=== PATIENT | male | born 1960 | race Caucasian/White ===

== ENCOUNTER 2023-10-09 11:10 | Outpatient (AMB) | payer OTHER, SELFPAY ==
--- NOTE | 2023-10-09 11:15 | A.OFFPC_ITS ---
Vital Signs 10/09/23 11:20 Height 5 ft 8.5 in Weight 146 lb 6 oz BMI 21.9 BP 140/64 H Blood Pressure Location Lt brachial Position Sitting Pulse 97 Pulse Source Pulse Oximeter Pulse Oximetry (%) 99 Oxygen Delivery Method Room Air Intake Visit Reasons: [facility] from [facility] Intake Note: Patient reports he would like to have labs- cholesterol. Patient had 2 major operations for his back due to pain in right leg. Patient reports right leg pain is still prominent. 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 Otolaryngology Surgeon Required: No Accompanied by: Spouse Allergies No Known Allergies Allergy (Verified 10/09/23 11:34) Tobacco use date assessed: 10/09/23 Dental Screening Dental Screen Date: 10/09/23 Did you have a dental visit in the last 12 months?: No Did you have a dental problem in the last 6 months where you did not have access to dental care?: No Was dental information given to patient?: Patient has dentist HPI HPI Comments History of Present Illness Details The patient is a 62 year old male with a past medical history of hypertension, hyperlipidemia, headaches presenting for follow up History of L3/L4 surgery 2022. Continues gabapentin. Presented with thigh pain and numbness. These symptoms did not resolve with surgery. Developed cervical myelopathy following surgery. Completed long course of PT. This slowly improved. Continues to be most bothered by daily chronic deep right upper leg pain. Has lost weight-unintentional CV: On pravastatin, verapamil (BOURGEOIS prophylaxis). Denies chest pain, dizziness, vision changes. GERD-stable on pepcid 20mg daily Colonoscopy 2012 ROS see HPI PHYSICAL EXAM: GENERAL: Alert and oriented x 3. NAD EYES: EOMI. Anicteric. HENT: Moist mucous membranes. No scleral icterus. No cervical lymphadenopathy. LUNGS: Clear to auscultation bilaterally. CARDIOVASCULAR: Regular rate and rhythm. No murmur. No JVD. ABDOMEN: Soft, non-tender +bs EXTREMITIES: No edema. Non-tender. MSK: Antalgic gait. Increased pain with squatting & rising SKIN: No rashes or lesions. Warm. NEUROLOGIC: No focal neurological deficits. CN II-XII grossly intact PSYCHIATRIC: Cooperative. Appropriate mood and affect [facility] Medical History Chronic GERD Cluster headache Pinched nerve High cholesterol Nerve palsy Hypertension Surgical History History of colonoscopy History of neck surgery Previous back surgery Family History Mother Cancer Father Heart attack Social History Household Members: Spouse Housing: House 75 years or older and lives alone: No Alcohol intake: current Alcohol intake frequency: a few times a month Alcohol type: beer Patient Tobacco Use Status: Former Tobacco user e-Cigarette/Vaping Use: Never Used Substance Use Type: Marijuana service: No Current occupational status: employed Cognitive needs: No Hearing needs: No Vision needs: No Questionnaire PHQ-9 Over the last 2 weeks, how often have you been bothered by any of the following problems? 1. Little interest or pleasure in doing things: not at all 2. Feeling down, depressed, or hopeless: not at all 3. Trouble falling or staying asleep, or sleeping too much: nearly every day 4. Feeling tired or having little energy: several days 5. Poor appetite or overeating: several days 6. Feeling bad about yourself - or that you are a failure or have let yourself or your family down: not at all 7. Trouble concentrating on things, such as reading the newspaper or watching television: not at all 8. Moving or speaking so slowly that other people could have noticed. Or the opposite - being so fidgety or restless that you have been moving around a lot more than usual: not at all 9. Thoughts that you would be better off or of hurting yourself in some way: not at all Total score: 5 Depression Screening Interpretation: Positive Depression Screening Done: Yes 32468 - PHQ-9 Billing: Yes Source: Developed by Drs. Chris Valentino, Velia León, Aaron Echols and colleagues, with an educational carrie from [employer]. Thrive Questionnaire Date Thrive assessed: 10/09/23 I am a: Patient What is your living situation today?: I have a steady place to live Within the past 12 months, did the food you bought not last and you didn't have the money to get more?: Never true Within the past 12 months, did you worry whether your food would run out before you got money to buy more?: Never true Do you have trouble paying for medicines?: No Do you have trouble getting transportation to medical appointments?: No Do you have trouble paying your heating and electricity bill?: No Do you have trouble taking care of your child, family member or friend?: No Do you have trouble with day-to-day activities such as bathing, preparing meals, shopping, managing finances, etc.?: No Are you currently unemployed and looking for a job?: No Are you interested in more education?: No Please select the resources that you would like help with: None Currently or been in a relationship where the following occur: No concerns reported THRIVE Score: 0 AUDIT C Alcohol Use Questionnaire (AUDIT-C) 1. How often do you have a drink containing alcohol?: 2-3 times a week 2. How many drinks containing alcohol do you have on a typical day when you are drinking?: 1 or 2 3. How often do you have six or more drinks on one occasion?: Never Total Score: 3 TINA-7 AMB Questionnaire TINA-7 Date TINA - 7 assessed: 10/09/23 Feeling nervous, anxious, or on edge: 0 = Not at all Not being able to stop or control worryin = Not at all Worrying too much about different things: 0 = Not at all Trouble relaxin = Not at all Being so restless that it is hard to sit still: 0 = Not at all Becoming easily annoyed or irritable: 0 = Not at all Feeling afraid as if something awful might happen: 0 = Not at all Total TINA-7 score (0-4 normal; 5-9 mild; 10-14 moderate; 15-21 severe): 0 Source: Developed by Drs. Chris Valentino, Velia León, Aaron Echols and colleagues, with an educational carrie from [employer]. TINA-7 Assessment Billing TINA-7 Assessment Tool: TINA-7 Assessment 51770 Physical exam (Primary Care) Vital Signs: Last Vital Signs Pulse 97 10/09/23 11:20 BP 140/64 H 10/09/23 11:20 Pulse Ox 99 10/09/23 11:20 Oxygen Delivery Method Room Air 10/09/23 11:20 BMI result Body Mass Index 21.9 Tobacco/Smoking Status: Tobacco use Status Tobacco use date assessed 10/09/23 10/09/23 11:39 Patient Tobacco Use Status Former Tobacco user 10/09/23 12:09 e-Cigarette/Vaping Use Never Used 10/09/23 12:09 PHQ-9: PHQ-9 Score PHQ-9: Total score 5 10/15/23 11:45 Depression Screening Interpretation: Positive Thrive Assessment: Date of Thrive Assessment Date Thrive assessed 10/09/23 10/09/23 12:01 Currently or been in a relationship where the following occur: No concerns reported Assessment and Plan Assessment & Plan (1) Right thigh pain: Code(s): M79.651 - Pain in right thigh Plan: MRI leg ordered. No improvement with these symptoms following back surgery Baclofen sent (2) Weakness of right lower extremity: Code(s): R29.898 - Other symptoms and signs involving the musculoskeletal system (3) Screening, deficiency anemia, iron: Code(s): Z13.0 - Encounter for screening for diseases of the blood and blood-forming organs and certain disorders involving the immune mechanism (4) Hyperlipidemia: Code(s): E78.5 - Hyperlipidemia, unspecified Qualifiers: Hyperlipidemia type: mixed hyperlipidemia Qualified Code(s): E78.2 - Mixed hyperlipidemia Plan: labs ordered. Plan Due for colonoscopy which is ordered Orders: Orders XR femur RT 2V 10/09/23 M79.651 - Pain in right thigh, R29.898 - Other symptoms and signs involving the musculoskeletal system MR femur RT wo con 10/09/23 M79.651 - Pain in right thigh, R29.898 - Other symptoms and signs involving the musculoskeletal system Lipid Panel 10/09/23 E78.5 - Hyperlipidemia, unspecified, M79.651 - Pain in right thigh, R29.898 - Other symptoms and signs involving the musculoskeletal system, Z13.0 - Encounter for screening for diseases of the blood and blood- forming organs and certain disorders involving the immune mechanism Complete Blood Count Auto Diff 10/09/23 E78.5 - Hyperlipidemia, unspecified, M79.651 - Pain in right thigh, R29.898 - Other symptoms and signs involving the musculoskeletal system, Z13.0 - Encounter for screening for diseases of the blood and blood-forming organs and certain disorders involving the immune mechanism Comprehensive Met. Panel 10/09/23 E78.5 - Hyperlipidemia, unspecified, M79.651 - Pain in right thigh, R29.898 - Other symptoms and signs involving the musculoskeletal system, Z13.0 - Encounter for screening for diseases of the blood and blood-forming organs and certain disorders involving the immune mechanism Referrals Open Access Screening Colonoscopy Referral Z12.11 - Encounter for screening for malignant neoplasm of colon, Z12.12 - Encounter for screening for malignant neoplasm of rectum Medications: New baclofen 10 mg PO BEDTIME 90 tabs 3RF Coding Level of Care Code Est Pt Level 5 (00819) Diagnoses Right thigh pain M79.651 Weakness of right lower extremity R29.898 Screening, deficiency anemia, iron Z13.0 Mixed hyperlipidemia E78.2 Hyperlipidemia type: mixed hyperlipidemia Additional Codes TINA-7 Assessment Billing - TINA-7 Assessment Tool: TINA-7 Assessment 90888 ([id number])
[2023-10-09 11:20] VITALS: BP 140/64; PULSE 97; O2SAT 99; BMI 21.9
== END 2023-10-09 12:45 | disposition home or self-care (01) ==
PROVIDERS: PCP Internal Medicine; Visit Provider Internal Medicine
DX: M79.651 Pain in right thigh (principal); R29.898 Other symptoms and signs involving the musculoskeletal system; Z13.0 Encounter for screening for diseases of the blood and blood-forming organs and certain disorders involving the immune mechanism; E78.2 Mixed hyperlipidemia
CPT/HCPCS: 99214

== ENCOUNTER 2023-10-09 12:26 | Outpatient (REF) | payer OTHER, SELFPAY ==
[2023-10-09 14:00] LABS: MANUAL DIFF FLAG NO
[2023-10-09 14:03] LABS: Basophils Absolute Auto 0.1 X10*3/uL (0.0-0.2); Basophils Percent Auto 0.9 % (0-2); Eosinophils Absolute Auto 0.1 X10*3/uL (0.0-0.4); Hematocrit 43.8 % (42.0-52.0); Hemoglobin 14.9 g/dl (14.0-18.0); Imm Gran Abs Auto 0.02 X10*3/uL (0.00-0.03); Imm Gran Pct Auto 0.3 % (0.0-0.4); Lymphocytes Absolute Auto 2.3 X10*3/uL (1.2-4.9); Lymphocytes Percent Auto 29.2 % (20-40); Mean Corpuscular Hemoglobin 33.3 pg (27.0-33.0); Mean Corpuscular Volume 97.8 fL (80.0-98.0); Mean Platelet Volume 9.6 fL (9.4-12.4); Monocytes Absolute Auto 0.7 X10*3/uL (0.1-1.2); Neutrophils Absolute Auto 4.7 x10*3/uL (2.0-8.3); Neutrophils Percent Auto 59.6 % (45-73); Platelet Count 206 X10*3/uL (160-400); Red Blood Count 4.48 X10*6/uL (4.60-5.80); Red Cell Distribution Width 12.5 % (11.0-16.0); White Blood Count 7.9 X10*3/uL (4.8-10.8)
[2023-10-09 14:20] LABS: Alanine Aminotransferase 87 U/L (0-40); Albumin Level 4.5 g/dL (3.5-5.0); Alkaline Phosphatase 74 U/L (39-117); Anion Gap 17 (12-20); Aspartate Amino Transferase 65 U/L (5-37); Bilirubin Total 0.5 mg/dL (0.0-1.0); Blood Urea Nitrogen 14 mg/dL (9-16); Carbon Dioxide 24 mmol/L (22-29); Chloride 100 mmol/L (96-108); Cholesterol 233 mg/dL (<200); Estimated Glomerular Filt Rate > 60; Glucose Random 89 mg/dL (60-115); HDL Cholesterol 72 mg/dL (>40); Potassium 4.1 mmol/L (3.3-5.1); Sodium 137 mmol/L (135-145); Total Protein 7.8 g/dL (6.5-8.0); Triglycerides 425 mg/dL (<150)
== END 2023-10-09 12:27 | disposition home or self-care (01) ==
LOC: HO.WFDLDS 12:26
PROVIDERS: Visit Provider Internal Medicine
DX: R29.898 Other symptoms and signs involving the musculoskeletal system (principal); M79.651 Pain in right thigh; Z13.0 Encounter for screening for diseases of the blood and blood-forming organs and certain disorders involving the immune mechanism; E78.5 Hyperlipidemia, unspecified
CPT/HCPCS: 36415; 80053; 80061; 85025

== ENCOUNTER 2023-11-11 15:57 | Outpatient (REF) | payer OTHER, SELFPAY ==
--- NOTE | ~2023-11-11 | MR_ITS ---
EXAMINATION: MRI OF THE RIGHT FEMUR WITHOUT CONTRAST INDICATION: M79.651 - Pain in right thigh. COMPARISON: None TECHNIQUE: Multiplanar MR imaging was obtained through the right femur from the hip through the distal femoral metaphysis without contrast material on a 1.5 Araseli magnet. FINDINGS: Chronic avascular necrosis is evident of the femoral heads bilaterally. At the right femoral head, there is collapse of the articular cortex anterosuperiorly over an area measuring 4 x 3.8 cm with a depth of depression of approximately 8 mm as well as intense underlying subarticular marrow edema signal. Minimal cystic change is also present within the periphery of the zone of infarct. There is an associated large right hip joint effusion with mild synovitis. No appreciable loose bodies. There is likely [id number] osteoarthritis in the right hip, though assessment of the cartilage is somewhat limited on these large [id number] images. Intense edema signal extends from the femoral head through the femoral neck. Chronic avascular necrosis is present at the left femoral head without appreciable articular cortical collapse. No significant marrow edema signal in the left proximal femur. Diverticulosis is present within the sigmoid colon. No acute intrapelvic abnormalities. No acute intrapelvic findings. No adenopathy. There is mild tendinosis at the right hamstring origin. No tears. The musculature within the region of the pelvis and thighs is normal in signal intensity without significant edema signal or fatty replacement. MR/MR femur RT wo con IMPRESSION: 1. Chronic avascular necrosis of the right femoral head with articular cortical collapse and intense underlying marrow edema signal. Large right hip joint effusion with mild synovitis. 2. Chronic avascular necrosis of the left femoral head without articular cortical collapse. 3. Mild tendinosis at the right hamstring origin. Electronically signed by: Tomy Polo MD 11/14/2023 09:47 PM EDT
== END 2023-11-11 15:58 | disposition home or self-care (01) ==
LOC: HO.MRI 15:57
PROVIDERS: PCP Internal Medicine; Visit Provider Internal Medicine
DX: M79.651 Pain in right thigh (principal); R29.898 Other symptoms and signs involving the musculoskeletal system
CPT/HCPCS: 73718

== ENCOUNTER 2023-12-11 08:46 | Outpatient (AMB) | payer OTHER, SELFPAY ==
[2023-12-11 08:57] VITALS: BMI 21.9
--- NOTE | 2023-12-11 08:57 | MHC.OFFVIS ---
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 Patient reports that he has had onoing right hip pain for about 2 years now. His pain started in the Quad, he then found out he had a pinched nerve in his back. He had surgery to fix this, but his pain in the quad remained. He then found that he had compressed spine in the neck which never resolved problems of the right hip/leg. He feels pain all the time, he has trouble with gait initiation as the hip feels unstable. Pain is mostly felt in the quad and in the groin. Denies numbness and tingling. 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 Patient reports that he has had onoing right hip pain for about 2 years now. His pain started in the Quad, he then found out he had a pinched nerve in his back. He had surgery to fix this, but his pain in the quad remained. He then found that he had compressed spine in the neck which never resolved problems of the right hip/leg. He feels pain all the time, he has trouble with gait initiation as the hip feels unstable. Pain is mostly felt in the quad and in the groin. Denies numbness and tingling. The describes pain with all daily activities. He is frustrated that he has had 2 surgeries and the pain has not changed at all. He did get an MRI a few months ago which showed a right femoral head collapse with bilateral avascular necrosis with no collapse on the left. [facility] Medical History Chronic GERD Cluster headache Pinched nerve High cholesterol Nerve palsy Hypertension Surgical History History of colonoscopy History of neck surgery Previous back surgery Family History Mother Cancer Father Heart attack Social History (Updated 12/11/23 @ 09:02 by Irene Bangura 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 3-5 beats of clonus bilaterally with no focal lower extremity weakness. Positive Narayanan's test Results Reviewed Results Reviewed: I personally reviewed the MR images. There is extensive femoral head collapse on the right with evidence of avascular necrosis and with a large effusion. There are serpiginous changes of the left femoral head as well with no collapse. 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 He has undergone several spine surgeries but continues to have right groin and thigh pain. His exam and radiographic findings are consistent with collapse of the right femoral head and I recommend arthroplasty. I reviewed with him the risks and benefits of surgery. I explained the importance of pre operative and postoperative compliance as well as the role of alcohol and postoperative risk factors. He is alcohol dependent describes drinking 3-5 beers a day and has for many years. He no longer smokes cigarettes. While this does increase some risks I think surgeries still appropriate and indicated. We will see him back in approximately 1 month for additional review of his radiographs and our findings from a his additional medical information. (2) Alcohol dependence: Code(s): F10.20 - Alcohol dependence, uncomplicated Category: Medical Plan: Coding Level of Care Code New Pt Level 4 (61895) Diagnoses Avascular necrosis of bone M87.00 Alcohol dependence F10.20
== END 2023-12-11 10:51 | disposition home or self-care (01) ==
PROVIDERS: PCP Internal Medicine; Visit Provider Orthopaedic Surgery
DX: M87.051 Idiopathic aseptic necrosis of right femur (principal); F10.20 Alcohol dependence, uncomplicated
CPT/HCPCS: 99204

== ENCOUNTER → 2023-12-11 08:46 | Outpatient (BNVA) | payer OTHER, SELFPAY | PROVIDERS: PCP Internal Medicine; Visit Provider Orthopaedic Surgery ==

== ENCOUNTER 2024-01-08 08:46 | Outpatient (REF) | payer OTHER, SELFPAY | END 2024-01-08 08:47 | disposition home or self-care (01) | LOC: HO.HOSX 08:46 | PROVIDERS: Visit Provider Orthopaedic Surgery | DX: Z01.810 Encounter for preprocedural cardiovascular examination (principal); M87.051 Idiopathic aseptic necrosis of right femur; H26.9 Unspecified cataract | CPT/HCPCS: 72170; 96127 ==

== ENCOUNTER 2024-01-08 09:18 | Outpatient (AMB) | payer OTHER, SELFPAY ==
--- NOTE | 2024-01-08 09:21 | MHC.OFFVIS ---
Intake Visit Reasons: OV - Right Hip AVN - R MANGO 03/05/24 Intake Note: Chris is a 63 year old male who presents today for a follow up of his Stage III/4 AVN of the right hip. At last visit it was discussed that patient is alcohol dependent, drinking 3-4 alcoholic beverages a day. Today he presents to further discuss Right Total hip arthroplasty which is booked for 03/05/24 and involvement of his medical history. Allergies No Known Allergies Allergy (Verified 01/08/24 11:21) HPI HPI OV - Right Hip AVN - R MANGO 03/05/24: Details: Chris is a 63 year old male who presents today for a follow up of his Stage III/4 AVN of the right hip. . Today he presents to further discuss Right Total hip arthroplasty which is booked for 03/05/24 and involvement of his medical history. He continues to have severe gait antalgia with pain PFSH Medical History Chronic GERD Cluster headache Pinched nerve High cholesterol Nerve palsy Hypertension Surgical History History of colonoscopy History of neck surgery Previous back surgery Family History Mother Cancer Father Heart attack Social History Household Members: Spouse Housing: House 75 years or older and lives alone: No Alcohol intake: current Alcohol intake frequency: a few times a month Alcohol type: beer Patient Tobacco Use Status: Former Tobacco user e-Cigarette/Vaping Use: Never Used Substance Use Type: Marijuana service: No Current occupational status: employed 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 Results Reviewed Results Reviewed: I personally reviewed relevant radiographs. 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 He has undergone several spine surgeries but continues to have right groin and thigh pain. His exam and radiographic findings are consistent with collapse of the right femoral head and I recommend arthroplasty. I reviewed with him the risks and benefits of surgery. I explained the importance of pre operative and postoperative compliance as well as the role of alcohol and postoperative risk factors. I discussed the risks benefits and alternatives including but not limited to the risk of pain, infection, stiffness, need for further surgery as well as potential medical complications such as blood clots, pulmonary embolism and cardiac complications. Orders: Orders XR pelvis 1-2V Today M25.559 - Pain in unspecified hip Coding Level of Care Code Est Pt Level 3 (61923) Diagnoses Avascular necrosis of bone M87.00
== END 2024-01-08 10:08 | disposition home or self-care (01) ==
PROVIDERS: PCP Internal Medicine; Visit Provider Orthopaedic Surgery
DX: M87.00 Idiopathic aseptic necrosis of unspecified bone (principal)
CPT/HCPCS: 99213

== ENCOUNTER 2024-01-08 11:17 | Outpatient (AMB) | payer OTHER, SELFPAY ==
[2024-01-08 11:18] VITALS: BP 140/84; PULSE 103; O2SAT 97; BMI 21.8
--- NOTE | 2024-01-08 11:18 | A.OFFPC_ITS ---
Vital Signs 01/08/24 11:18 Height 5 ft 8.5 in Weight 145 lb 6 oz BMI 21.8 BP 140/84 H Blood Pressure Location Rt brachial Position Sitting Pulse 103 H Pulse Source Pulse Oximeter Pulse Oximetry (%) 97 Oxygen Delivery Method Room Air Intake Visit Reasons: PCP Clearance for Surgery Allergies No Known Allergies Allergy (Verified 01/08/24 11:21) Tobacco use date assessed: 01/08/24 Dental Screening Dental Screen Date: 01/08/24 Did you have a dental visit in the last 12 months?: No Did you have a dental problem in the last 6 months where you did not have access to dental care?: No Was dental information given to patient?: Patient has dentist HPI HPI Comments History of Present Illness Details The patient is a 63 year old male with a past medical history of hypertension, hyperlipidemia, headaches presenting preoperative cardiac risk assessment cataract surgery DR Li 01/30 and upcoming MANGO with Dr Obie Samaniego currently schedule for February No chest pain, shortness of breath No history of sleep apnea No problems with anesthesia in the past Can climb 2 flights of stairs without respiratory difficulty. His mobility is limited by pain History of L3/L4 surgery 2022. Continues gabapentin. Presented with thigh pain and numbness. These symptoms did not resolve with surgery. Developed cervical myelopathy following surgery. Completed long course of PT. This slowly improved. Continues to be most bothered by daily chronic deep right upper leg pain. Has lost weight-unintentional. 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 Denies chest pain, dizziness, vision changes. GERD-stable on pepcid 20mg daily Colonoscopy 2012 ROS see HPI PHYSICAL EXAM: GENERAL: Alert and oriented x 3. NAD EYES: EOMI. Anicteric. HENT: Moist mucous membranes. No scleral icterus. No cervical lymphadenopathy. LUNGS: Clear to auscultation bilaterally. CARDIOVASCULAR: Regular rate and rhythm. No murmur. No JVD. ABDOMEN: Soft, non-tender +bs EXTREMITIES: No edema. Non-tender. SKIN: No rashes or lesions. Warm. NEUROLOGIC: No focal neurological deficits. CN II-XII grossly intact PSYCHIATRIC: Cooperative. Appropriate mood and affect [facility] Medical History Chronic GERD Cluster headache Pinched nerve High cholesterol Nerve palsy Hypertension Surgical History History of colonoscopy History of neck surgery Previous back surgery Family History Mother Cancer Father Heart attack Social History Household Members: Spouse Housing: House 75 years or older and lives alone: No Alcohol intake: current Alcohol intake frequency: a few times a month Alcohol type: beer Patient Tobacco Use Status: Former Tobacco user e-Cigarette/Vaping Use: Never Used Substance Use Type: Marijuana service: No Current occupational status: employed 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 1. Little interest or pleasure in doing things: not at all 2. Feeling down, depressed, or hopeless: not at all 3. Trouble falling or staying asleep, or sleeping too much: several days 4. Feeling tired or having little energy: several days 5. Poor appetite or overeating: not at all 6. Feeling bad about yourself - or that you are a failure or have let yourself or your family down: not at all 7. Trouble concentrating on things, such as reading the newspaper or watching television: not at all 8. Moving or speaking so slowly that other people could have noticed. Or the opposite - being so fidgety or restless that you have been moving around a lot more than usual: not at all 9. Thoughts that you would be better off or of hurting yourself in some way: not at all Total score: 2 Depression Screening Interpretation: Negative Depression Screening Done: Yes 03506 - PHQ-9 Billing: Yes Source: Developed by Drs. Chris Valentino, Velia León, Aaron Echols and colleagues, with an educational carrie from [employer]. Thrive Questionnaire Date Thrive assessed: 01/08/24 I am a: Patient What is your living situation today?: I have a steady place to live Within the past 12 months, did the food you bought not last and you didn't have the money to get more?: Never true Within the past 12 months, did you worry whether your food would run out before you got money to buy more?: Never true Do you have trouble paying for medicines?: No Do you have trouble getting transportation to medical appointments?: No Do you have trouble paying your heating and electricity bill?: No Do you have trouble taking care of your child, family member or friend?: No Do you have trouble with day-to-day activities such as bathing, preparing meals, shopping, managing finances, etc.?: No Are you currently unemployed and looking for a job?: No Are you interested in more education?: No Please select the resources that you would like help with: None Currently or been in a relationship where the following occur: No concerns reported THRIVE Score: 0 AUDIT C Alcohol Use Questionnaire (AUDIT-C) 1. How often do you have a drink containing alcohol?: 4 or more times a week 2. How many drinks containing alcohol do you have on a typical day when you are drinking?: 3 or 4 3. How often do you have six or more drinks on one occasion?: Weekly Total Score: 8 TINA-7 AMB Questionnaire TINA-7 Date TINA - 7 assessed: 01/08/24 Feeling nervous, anxious, or on edge: 0 = Not at all Not being able to stop or control worryin = Not at all Worrying too much about different things: 0 = Not at all Trouble relaxin = More than half the days Being so restless that it is hard to sit still: 0 = Not at all Becoming easily annoyed or irritable: 2 = More than half the days Feeling afraid as if something awful might happen: 0 = Not at all Total TINA-7 score (0-4 normal; 5-9 mild; 10-14 moderate; 15-21 severe): 4 Source: Developed by Drs. Chris Valentino, Velia León, Aaron Echols and colleagues, with an educational carrie from [employer]. TINA-7 Assessment Billing TNIA-7 Assessment Tool: TINA-7 Assessment 95685 Physical exam (Primary Care) Vital Signs: Last Vital Signs Pulse 103 H 01/08/24 11:18 BP 140/84 H 01/08/24 11:18 Pulse Ox 97 01/08/24 11:18 Oxygen Delivery Method Room Air 01/08/24 11:18 BMI result Body Mass Index 21.8 Tobacco/Smoking Status: Tobacco use Status Tobacco use date assessed 01/08/24 01/08/24 11:22 Patient Tobacco Use Status Former Tobacco user 01/08/24 11:22 e-Cigarette/Vaping Use Never Used 01/08/24 11:22 PHQ-9: PHQ-9 Score PHQ-9: Total score 2 01/11/24 09:06 Depression Screening Interpretation: Negative Thrive Assessment: Date of Thrive Assessment Date Thrive assessed 01/08/24 01/08/24 11:24 Currently or been in a relationship where the following occur: No concerns reported Coding Level of Care Code Est Pt Level 5 (08314) Diagnoses Preoperative cardiovascular examination Z01.810 Avascular necrosis of bone M87.00 Cataract H26.9 Cataract type: unspecified Additional Codes TINA-7 Assessment Billing - TINA-7 Assessment Tool: TINA-7 Assessment 61650 ([id number]) Time Spent (min) 43 Assessment & Plan Assessment & Plan (1) Preoperative cardiovascular examination: Code(s): Z01.810 - Encounter for preprocedural cardiovascular examination Category: Medical Plan: Average risk patient for average risk and low risk surgery No surgical risk factors EKG is reassuring METS is hard to assess given severity of leg pain but >/=4 No further cardiac work up is needed prior to proceeding with surgery. Medications per performing providers (2) Avascular necrosis of bone: Code(s): M87.00 - Idiopathic aseptic necrosis of unspecified bone Category: Medical Plan: Planned arthroscopy (3) Cataract: Code(s): H26.9 - Unspecified cataract Category: Medical Qualifiers: Cataract type: unspecified Plan: planned surgery. Orders: Orders Comprehensive Met. Panel 01/08/24 M87.00 - Idiopathic aseptic necrosis of unspecified bone, Z01.810 - Encounter for preprocedural cardiovascular examination Complete Blood Count Auto Diff 01/08/24 M87.00 - Idiopathic aseptic necrosis of unspecified bone, Z01.810 - Encounter for preprocedural cardiovascular examination Partial Thromboplastin Time 01/08/24 M87.00 - Idiopathic aseptic necrosis of unspecified bone, Z01.810 - Encounter for preprocedural cardiovascular examination Prothrombin Time INR 10/21/24 M87.00 - Idiopathic aseptic necrosis of unspecified bone, Z01.810 - Encounter for preprocedural cardiovascular examination
== END 2024-01-08 12:02 | disposition home or self-care (01) ==
PROVIDERS: PCP Internal Medicine; Visit Provider Internal Medicine
DX: Z01.810 Encounter for preprocedural cardiovascular examination (principal); M87.00 Idiopathic aseptic necrosis of unspecified bone; H26.9 Unspecified cataract

== ENCOUNTER 2024-01-16 07:45 | Outpatient (REF) | payer OTHER, SELFPAY ==
[2024-01-16 11:30] LABS: MANUAL DIFF FLAG NO
[2024-01-16 11:53] LABS: Basophils Absolute Auto 0.1 X10*3/uL (0.0-0.2); Basophils Percent Auto 1.1 % (0-2); Eosinophils Absolute Auto 0.1 X10*3/uL (0.0-0.4); Eosinophils Percent Auto 1.3 % (0-4); Hematocrit 44.6 % (42.0-52.0); Imm Gran Abs Auto 0.02 X10*3/uL (0.00-0.03); Imm Gran Pct Auto 0.4 % (0.0-0.4); Lymphocytes Absolute Auto 1.8 X10*3/uL (1.2-4.9); Lymphocytes Percent Auto 32.1 % (20-40); Mean Corpuscular HGB Conc 33.6 g/dl (31.0-36.0); Mean Corpuscular Hemoglobin 32.6 pg (27.0-33.0); Mean Platelet Volume 9.9 fL (9.4-12.4); Monocytes Absolute Auto 0.6 X10*3/uL (0.1-1.2); Monocytes Percent Auto 10.9 % (2-11); Neutrophils Percent Auto 54.2 % (45-73); Platelet Count 183 X10*3/uL (160-400); White Blood Count 5.5 X10*3/uL (4.8-10.8)
[2024-01-16 11:58] LABS: INTERNATIONAL NORM RATIO 0.9 (0.9-1.1); Prothrombin Time 10.4 SEC (10.9-12.4)
[2024-01-16 12:01] LABS: Partial Thromboplastin Time 26.8 SEC (26.0-36.8)
[2024-01-16 12:25] LABS: Alanine Aminotransferase 119 U/L (0-40); Albumin Level 4.1 g/dL (3.5-5.0); Alkaline Phosphatase 77 U/L (39-117); Anion Gap 15 (12-20); Aspartate Amino Transferase 166 U/L (5-37); Bilirubin Total 0.6 mg/dL (0.0-1.0); Blood Urea Nitrogen 7 mg/dL (9-16); Calcium 9.8 mg/dL (8.4-10.2); Carbon Dioxide 28 mmol/L (22-29); Chloride 102 mmol/L (96-108); Cholesterol 210 mg/dL (<200); Estimated Glomerular Filt Rate > 60; Glucose Random 114 mg/dL (60-115); HDL Cholesterol 60 mg/dL (>40); LDL Cholesterol Calculated 112 mg/dL (<100); Potassium 3.9 mmol/L (3.3-5.1); Sodium 141 mmol/L (135-145); Total Protein 7.4 g/dL (6.5-8.0); Triglycerides 192 mg/dL (<150)
== END 2024-01-16 07:46 | disposition home or self-care (01) ==
LOC: HO.WFDLDS 07:45
PROVIDERS: Visit Provider Internal Medicine
DX: Z01.810 Encounter for preprocedural cardiovascular examination (principal); E78.2 Mixed hyperlipidemia; M87.00 Idiopathic aseptic necrosis of unspecified bone; Z79.01 Long term (current) use of anticoagulants
CPT/HCPCS: 36415; 80053; 80061; 85025; 85610; 85730

== ENCOUNTER → 2024-01-30 08:51 | Outpatient (BNVA) | payer OTHER, SELFPAY | PROVIDERS: PCP Internal Medicine | DX: Z01.818 Encounter for other preprocedural examination (principal) ==

== ENCOUNTER 2024-02-29 09:20 | Outpatient (AMB) | payer OTHER, SELFPAY ==
--- NOTE | 2024-02-29 09:37 | A.OFFVIS_ITS ---
Vital Signs 02/29/24 09:43 Height 5 ft 8 in Weight 145 lb BMI 22.0 Intake Visit Reasons: TM ANTONIA:Pre-Op: R MANGO w/NE 03/05/24 Intake Note: Chris a 63 year old male who presents today for a preoperative visit RT MANGO, DOS: 03/05/24 NE. Pain management agreement reviewed and signed. Allergies No Known Allergies Allergy (Verified 02/29/24 09:43) Medication List - Last Reconciled 02/29/24 by Fili Reed PA-C famotidine (Pepcid AC) 20 mg PO DAILY PRN pravastatin 40 mg PO QAM verapamil ER 120 mg PO QAM walker Folding Front wheeled walker HPI Comments Details: Mr Knott presents to the office today for preop visit. He is scheduled for right total hip arthroplasty with Dr. Samaniego. He continues to have ongoing pain and difficulty with ambulation in the right hip, which is affecting his quality of life; therefore, he has elected to move forward with surgery. [facility] Medical History (Updated 02/29/24 @ 09:55 by Fili Reed PA-C) HTN (hypertension) Avascular necrosis Alcohol dependence Chronic GERD Cluster headache High cholesterol Surgical History Hx of cataract surgery History of back surgery History of colonoscopy History of neck surgery Family History Mother Cancer Father Heart attack Social History Household Members: Spouse Housing: House Are you a primary career development facilitator to a significant other at home: No Do you presently have visiting nurse or other home services: No 75 years or older and lives alone: No Alcohol intake: current Alcohol intake frequency: a few times a month Alcohol type: beer Patient Tobacco Use Status: Former Tobacco user Tobacco use type: Cigarette Years Smoked: 38 e-Cigarette/Vaping Use: Never Used Substance Use Type: Marijuana service: No Current occupational status: employed 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 Cognitive needs: No Hearing needs: No Vision needs: No Review of Systems Const All systems reviewed & are unremarkable except as noted in HPI and below Physical Exam Vital Signs: BMI result Body Mass Index 22.0 Const General: cooperative, healthy appearing, comfortable, no acute distress, well developed and alert Orientation/consciousness: patient oriented x3 HEENT Head: Yes normal to inspection, Yes normocephalic and Yes atraumatic Eyes General: appearance normal, both eyes and all related structures Neck Neck: Yes normal visual inspection and Yes no lymphadenopathy Resp Effort & Inspection: normal respiratory effort and able to speak in complete sentences Cardio Rate: regular rate Peripheral pulses: Peripheral pulses 2+ throughout GI Inspection: Yes normal to inspection Palpation (GI): Soft to palpation Skin General skin exam: no rashes or lesions noted Neuro General: patient oriented x3 Extrem Other: Markedly positive impingement test on the right with minimal abduction. Psych Appearance: grossly normal Mental Status: mental status grossly normal Results Reviewed Results Reviewed: Xrays were obtained in the office today and personally reviewed by me of the right hip for pre op planning Assessment & Plan Assessment & Plan (1) Osteoarthritis of right hip: Code(s): M16.11 - Unilateral primary osteoarthritis, right hip Category: Medical Qualifiers: Osteoarthritis type: primary Qualified Code(s): M16.11 - Unilateral primary osteoarthritis, right hip Plan: I discussed in detail the procedure and what to expect pre and post operatively. We discussed the risks, benefits and alternatives to the surgery as well as the rehabilitation course. The risks; which include, but are not limited to infection, bleeding, nerve injury, ongoing pain, swelling, and stiffness, perioperative risk of injury to bones and soft tissues, and blood clots. I?ve answered all questions and with their understanding they have consented to move forward with Right total hip arthroplasty with Dr. Samaniego Patient has a walker ASA post op Orders: Orders XR hip RT min 2V Today M25.551 - Pain in right hip PT Evaluation and Treatment Today M16.11 - Unilateral primary osteoarthritis, right hip Coding Level of Care Code Est Pt Level 3 (56390) Complex EM visit Add On G2211 Diagnoses Primary osteoarthritis of right hip M16.11 Osteoarthritis type: primary
[2024-02-29 09:43] VITALS: BMI 22.0
== END 2024-02-29 09:55 | disposition home or self-care (01) ==
PROVIDERS: PCP Internal Medicine; Visit Provider Physician Assistant
DX: M16.11 Unilateral primary osteoarthritis, right hip (principal)
CPT/HCPCS: 99213

== ENCOUNTER 2024-02-29 10:00 | Outpatient (REF) | payer OTHER, SELFPAY | END 2024-02-29 10:01 | disposition home or self-care (01) | LOC: HO.HOSX 10:00 | PROVIDERS: Visit Provider Physician Assistant | DX: M25.551 Pain in right hip (principal) | CPT/HCPCS: 73502 ==

== ENCOUNTER 2024-03-05 05:58 | Day surgery (SDC) | payer OTHER, SELFPAY ==
[2024-02-05 12:03] VITALS: BP 163/83; PULSE 80; RESP 20; O2SAT 98; BMI 21.9
--- NOTE | 2024-02-05 12:28 | P.CONAN_ITS ---
Documented by User: Roseline Head NP 03/04/24 12:18 HPI - Anesthesia Eval Consult details Narrative: 63yo M for Right Hip total Arthroplasty, 03/05/24 Medically optimized per PCP No recent illness No CP/SOB with minimal activity d/t pain ETOH daily: ~ 5 beers, encouraged slowly cutting back preop PMFSH Active Problems Active Problems: All Active Problems Osteoarthritis of right hip (Acute) Cataract (Acute) Preoperative cardiovascular examination (Acute) Alcohol dependence (Acute) Right hip joint effusion (Acute) Avascular necrosis of bone (Acute) Hyperlipidemia (Acute) Screening, deficiency anemia, iron (Acute) Weakness of right lower extremity (Acute) Right thigh pain (Acute) Past Medical History Medical History HTN (hypertension) Avascular necrosis Alcohol dependence Chronic GERD Cluster headache High cholesterol Family History Family History Mother Cancer Father Heart attack Family history of problems with anesthesia: No Surgical History Surgical History Hx of cataract surgery History of back surgery History of colonoscopy History of neck surgery History of Problems with Anesthesia: No Social History Social History Household Members: Spouse Housing: House Are you a primary career development engineer to a significant other at home: No Do you presently have visiting nurse or other home services: No Alcohol intake: current Alcohol intake frequency: a few times a month Alcohol type: beer Patient Tobacco Use Status: Former Tobacco user Tobacco use type: Cigarette Years Smoked: 38 e-Cigarette/Vaping Use: Never Used Use of substances other than those prescribed or required for medical reasons: Yes Substance Use Type: Marijuana Substance Use Type Other:: smokes marijuana Substance Use Frequency: Daily Have you been hit, kicked, punched, or otherwise hurt by someone within the past year? 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 Cognitive needs: No Hearing needs: No Vision needs: No Meds Allergies Allergy/AdvReac Type Severity Reaction Status Date / Time No Known Allergies Allergy Verified 03/05/24 06:17 Home Medications ?Medication ?Instructions ?Recorded ?Confirmed ?Last Taken ?Type famotidine 10 mg tablet (Pepcid AC) 20 mg PO DAILY PRN Acid Reflux 10/09/23 03/05/24 03/05/24 History verapamil 120 mg tablet,extended 120 mg PO QAM 10/09/23 03/05/24 03/05/24 History release pravastatin 40 mg tablet 40 mg PO QAM 02/05/24 03/05/24 03/04/24 History Exam Height,Weight and Vital Signs: Height 5 ft 8.5 in Weight 66.224 kg Last Vital Signs Pulse 80 02/05/24 12:03 Resp 20 02/05/24 12:03 BP 163/83 H 02/05/24 12:03 Pulse Ox 98 02/05/24 12:03 O2 Del Method Room Air 02/05/24 12:03 Pertinent Lab Results Pertinent Lab Results: Lab Results 02/05/24 02/29/24 Range/Units 12:20 10:37 Nasal Screen MRSA (PCR) NEGATIVE (Negative) Nasal S. aureus Screen POSITIVE A (Negative) Nasal MRSA/S.aureus Interp SEE NOTE Blood Type B Positive Antibody Screen NEGATIVE Laboratory Tests 01/16/24 07:46 WBC 5.5 Hgb 15.0 Hct 44.6 Plt Count 183 Sodium 141 Potassium 3.9 Chloride 102 Carbon Dioxide 28 BUN 7 L Creatinine 0.81 Narrative Narrative: EKG 01/2024 NSR @ 87 Airway Mallampati Class: II TM Dist: >3cm Neck ROM: Limited (s/p cervical disc surgery with hardware) Loose/Missing/Broken Teeth: Yes (Molars extracted) Heart: RRR Lungs: CTAB Assessment and Plan Assessment Anesthesia Assessment: Anesthesia Plan Discussed and PAT Visit Final Anesthetic Review Family History of Problems with Anesthesia: No History of Problems with Anesthesia: No Documented by User: Katiana Neri MD 03/05/24 08:36 [facility] Past Medical History Medical History HTN (hypertension) Avascular necrosis Alcohol dependence Chronic GERD Cluster headache High cholesterol Family History Family History Mother Cancer Father Heart attack Surgical History Surgical History Hx of cataract surgery History of back surgery History of colonoscopy History of neck surgery Social History Social History Household Members: Spouse Housing: House Are you a primary career development engineer to a significant other at home: No Do you presently have visiting nurse or other home services: No Alcohol intake: current Alcohol intake frequency: a few times a month Alcohol type: beer Patient Tobacco Use Status: Former Tobacco user Tobacco use type: Cigarette Years Smoked: 38 e-Cigarette/Vaping Use: Never Used Use of substances other than those prescribed or required for medical reasons: Yes Substance Use Type: Marijuana Substance Use Type Other:: smokes marijuana Substance Use Frequency: Daily Have you been hit, kicked, punched, or otherwise hurt by someone within the past year? 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 Cognitive needs: No Hearing needs: No Vision needs: No Meds Allergies Allergy/AdvReac Type Severity Reaction Status Date / Time No Known Allergies Allergy Verified 03/05/24 06:17 Home Medications ?Medication ?Instructions ?Recorded ?Confirmed ?Last Taken ?Type famotidine 10 mg tablet (Pepcid AC) 20 mg PO DAILY PRN Acid Reflux 10/09/23 03/05/24 03/05/24 History verapamil 120 mg tablet,extended 120 mg PO QAM 10/09/23 03/05/24 03/05/24 History release pravastatin 40 mg tablet 40 mg PO QAM 02/05/24 03/05/24 03/04/24 History Assessment and Plan Final Anesthetic Review NPO: Yes ASA Class: III Final Preanesthetic Review: No Changes in Pt Med Stat, Meds/Allgs Chart Reviewed, Consent Obtained/Reviewed and Anes Risks/Benef Reviewed Patient Risk: Intermediate Procedure Risk: Low Anesthetic Plan Anesthetic Plan: MAC: Disposition: Standard PACU
[2024-02-05 14:21] LABS: MRSA Nasal PCR NEGATIVE (Negative); SA Nasal PCR POSITIVE (Negative)
[2024-03-05] VITALS (25 sets, daily range): BP systolic 129–195; BP diastolic 71–96; PULSE 74–99; RESP 10–20; TEMP 36.6–37.8; O2SAT 91–100; BMI 21.6; BMI 22.0
--- NOTE | ~2024-03-05 | XR_ITS ---
EXAMINATION: XR PELVIS CLINICAL INFORMATION: S/p R MANGO COMPARISON: 02/29/2024 TECHNIQUE: AP view of the pelvis. FINDINGS: Standard postoperative appearance of the right total hip arthroplasty. The components are in the usual position and alignment without evidence of loosening or fracture. Skin holly overlie the operative site. XR/XR pelvis 1-2V IMPRESSION: Standard postoperative appearance of the right total hip arthroplasty. Electronically signed by: Rigo Welch MD 03/05/2024 04:33 PM ABDULLAHI ESPINOSA
--- OUTSIDE RECORDS SUMMARY | 2024-03-05 06:01 | XMS_ITS ---
Author Name [facility] Organization Unknown History of Medication Use Medication Directions Dispensed Refills Start Date End Date Stat us famotidine (PEPCID) 20 MG tablet Take 1 tablet (20 mg total) by mouth daily. 01/25/2023 active pravastatin (PRAVACHOL) tablet 40 mg Take 1 tablet (40 mg total) by mouth daily. 01/25/2023 active acetaminophen (TYLENOL) 325 MG tablet Take 3 tablets (975 mg total) by mouth every 8 (eight) hours as needed for pain. 01/25/2023 active verapamil (CALAN-SR) 120 MG CR tablet 2 (two) times a day. 01/25/2023 active gabapentin (NEURONTIN) 300 MG capsule Take 1 capsule (300 mg total) by mouth 3 (three) times a day. 01/25/2023 active Problems Problem Status Onset Date Problem Type Date of Resolution Source Right thigh pain active 2022-07-12 ProblemAct C TTHNEMG S/P lumbar fusion active EncounterDiagnosisAct CTTHNEMG Lumbar herniated disc active 2022-07-12 ProblemAct CTTHNEMG Lumbosacral radiculopathy at L3 active 2022-07-27 ProblemAct CTTHNEMG Degenerative lumbar spinal stenosis active 2022-09-07 ProblemAct CTTHNEMG Lumbar back pain with radiculopathy affecting right lower extremity active 2022-07-12 ProblemAct CTTHNEMG
[2024-03-05] MEDS: oxyCODONE HCl ER 10 MG TAB.ER.12H PO (06:43)
[2024-03-05] MEDS: Lactated Ringers 1,000 ML 100 ML IVCONT ×2 (06:49→17:00)
--- NOTE | 2024-03-05 07:30 | MHC.SHP ---
Pre-Procedural Eval Section A - 24 Hr Update-Section A only Date of Service: 03/05/24 The patient is an INPATIENT: No Changes since office visit: No Cold of Flu in the past 2 weeks, No New Medical Problems, No Changes in Medication and No Patient answered all questions The patient has been examined within 24 hours of the surgical procedure. The History & Physical has been completed within 30 days and I have reviewed it.: Yes Section B - Complete if H&P > 30 days Chief Complaint: Idiopathic aseptic necrosis of unspecified bone Allergies: Allergies Allergy/AdvReac Type Severity Reaction Status Date / Time No Known Allergies Allergy Verified 03/05/24 06:17 Plan I have reviewed the history and physical and performed a pertinent physical examination on my patient. No changes have occurred unless specified. Time Spent With Patient Time: Total time managing care of this patient today ____ minutes.
--- NOTE | 2024-03-05 09:03 | P.OP_ITS ---
Operative Note Operative Note Date of Service: 03/05/24 Narrative: Date of Service: 03/05/24 Pre-op diagnosis: Right Hip OA Post-op diagnosis: same Procedure: Right MANGO Implants: Golden Trident2 50; Accolade 2 #6 132/ +0 36 ceramic Surgeon: Obie Samaniego MD Anesthesia: GETA and local Was an Painting Instructor used for this Procedure?: Yes Painting Instructor: Fili Reed Estimated blood loss (mL): 150 IV fluids (mL): 1,000 Pathology: other Condition: stable Disposition: PACU procedure in detail: Patient was brought into the operating room and placed in the right lateral decubitus position. All bony prominences were well padded and the limb was prepped and draped in standard sterile fashion. A time-out was called to identify proper site procedure proper surgeon IV antibiotics and 1 g of tranexamic acid were administered. I began by making a curvilinear incision over the posterolateral aspect of the greater trochanter. Dissection was taken down to the tensor fascia which was incised in line with the incision and a Charnley retractor was placed. Cautery was used to maintain hemostasis. The hip was internally rotated and the external rotators were identified. The vessels were cauterized and a full-thickness capsular/external rotator layer was developed starting just proximal to the piriformis. This layer was tagged and a dull Hohmann retractor was placed underneath the neck in the hip was dislocated. A neck cut was made 1 cm proximal to the lesser trochanter and the head and neck were removed and measured 46-48mm on the back table. The head was deformed and eburnated with the weight bearing portion of the head dessicated and necrotic. I then removed the labrum and cauterized the fovea. I started with a 44 reamer and medialized to the inner table. I sequentially reamed up to a size 50 and impacted a 50mm cup at 45 degrees of inclination and 25 degrees of version. I then placed a neutral liner and turned my attention to the femur. I identified the piriformis insertion and used this as a starting point for my joycelyn cutter. The medius tendon was protected with a Hibs retractor. A Charnley awl was inserted in the canal and a curved curette used to remove the lateral bone. I irrigated copiously. I then sequentially broached in the patient's natural version to a size 6 and placed my trial implants. I used a #6/132/-2.5 based on my pre-operative template. I trialed with a +0 head and the hip was stable in all ranges, mroe so than with the -2.5. I removed all instrumentation and copiously irrigated. I placed my final femoral implant and again took the hip through range of motion and was satisfied with the stability and length using a +0/3 head. The final +0 ceramic implant was impacted in place and the hip reduced. I then irrigated copiously and placed 1 g of local tranexamic acid. I performed a capsular closure with 2.0 fiberwire, Aguilar's fascia with 0 Vicryl, subcuticular with 2-0 Vicryl and the skin with holly. Patient was placed into a sterile dressing. Patient was extubated brought to the recovery room in stable condition. There we re no known complications.
[2024-03-05] MEDS: HYDROmorphone HCl 0.5 MG/0.5 ML SYRINGE 0.25 MG IVPUSH ×7 (09:29→18:59)
[2024-03-05] MEDS: oxyCODONE HCl Immed Release 5 MG TABLET PO ×2 (10:10→13:42)
--- NOTE | 2024-03-05 10:31 | PHA.MEDREC ---
Addendum entered by José Chatterjee 03/05/24 10:32: reviewed Original Note: Pharmacy Consult ? Medication Reconciliation Pharmacy has reviewed the medication reconciliation done by nursing. claims match med list.
--- NOTE | 2024-03-05 12:13 | P.CONHOSP_ITS ---
History of Present Illness Data of Consult Service Date: 03/05/24 Primary Care Provider: Maria Luisa Howell MD HPI 63-year-old man with a history of hyperlipidemia, hypertension admitted by Orthopedic surgery and is status post right total hip arthroplasty. Surgery was unremarkable. Pain is controlled. Patient is hemodynamically stable. Review of Systems Review of Systems: Denies any recent fever chills or decrease in appetite respiratory denies any shortness of breath coverage production cardiovascular is adjustment of any PND or edema gastrointestinal denies any dysphagia abdominal pain nausea vomiting or diarrhea genitourinary denies any dysuria frequency or hematuria musculoskeletal denies any joint pain or swelling neuropsych denies any weakness or seizures all other systems reviewed are negative [facility] Medical History HTN (hypertension) Avascular necrosis Alcohol dependence Chronic GERD Cluster headache High cholesterol Family History Mother Cancer Father Heart attack Surgical History Hx of cataract surgery History of back surgery History of colonoscopy History of neck surgery Social History Household Members: Spouse Housing: House Are you a primary care transition manager to a significant other at home: No Do you presently have visiting nurse or other home services: No Alcohol intake: current Alcohol intake frequency: a few times a month Alcohol type: beer Patient Tobacco Use Status: Former Tobacco user Tobacco use type: Cigarette Cigarettes Per Day: 27 Years Smoked: 38 e-Cigarette/Vaping Use: Never Used Use of substances other than those prescribed or required for medical reasons: No Substance Use Type: Marijuana Substance Use Type Other:: smokes marijuana Substance Use Frequency: Daily Have you been hit, kicked, punched, or otherwise hurt by someone within the past year? If so, by whom?: No Do you feel safe in your current relationship?: Yes Is there a partner from a previous relationship who is making you feel unsafe now?: No Spiritual Healthcare Practices: none Anglican Healthcare Practices: Baptism Cultural Healthcare Practices: none Are you DNR?: No Advance Directives: No ( is primary contact) Advance Directives Information Provided: Yes (as above noted) Advance Directives on File: No (pt and discussing) Do you have a plan to hurt others: No Plan Recently lost weight without trying: No Eating poorly because of decreased appetite: No Nutrition Risks: No Nutritional Risk Poor oral hygiene: No (upper extracted teeth) service: No Current occupational status: employed 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 Cognitive needs: No Hearing needs: No Vision needs: No Meds Allergies Allergy/AdvReac Type Severity Reaction Status Date / Time No Known Allergies Allergy Verified 03/05/24 06:17 Active Medications: Current Medications Acetaminophen (Acetaminophen 325 Mg Tablet) 650 mg PO Q6H PRN PRN Reason: Pain, Mild (Pain Scale 1-3), fever or headache Aspirin (Aspirin 325 Mg Tablet) 325 mg PO BID ELENI Celecoxib (Celecoxib 200 Mg Capsule) 200 mg PO BID ELENI Docusate Sodium (Docusate Sodium 100 Mg Capsule) 100 mg PO BID ELENI Famotidine (Famotidine 20 Mg Tablet) 20 mg PO DAILY PRN PRN Reason: Acid Reflux Hydromorphone HCl (Hydromorphone Hcl 0.5 Mg/0.5 Ml Syringe) 0.25 mg IVPUSH Q4H PRN; Protocol PRN Reason: Pain, Severe (Pain Scale 7-10) Lactated Ringer's (Lr) 1,000 mls @ 100 mls/hr IVCONT .Q10H ELENI Stop: 03/06/24 10:00 Cefazolin Sodium/Dextrose (Ancef) 2 gm in 50 mls @ 100 mls/hr IV POSTOP@1400 ONE Stop: 03/05/24 14:29 Ondansetron HCl (Ondansetron Hcl 4 Mg/2 Ml Vial) 4 mg IVPUSH Q8H PRN PRN Reason: Nausea and Vomiting Oxycodone HCl (Oxycodone Hcl Immed Release 5 Mg Tablet) 5 mg PO Q4H PRN PRN Reason: Pain, Moderate(Pain Scale 4-6) Oxycodone HCl (Oxycodone Hcl Er 10 Mg Tab.Er.12h) 10 mg PO BID [facility] Sodium Chloride (0.9 % Sodium Chloride Flush 3 Ml Syringe) 3 ml IVFLUSH QSHIFT [facility] Home Medications ?Medication ?Instructions ?Recorded ?Confirmed ?Last Taken ?Type famotidine 10 mg tablet (Pepcid AC) 20 mg PO DAILY PRN Acid Reflux 10/09/23 03/05/24 03/05/24 History verapamil 120 mg tablet,extended 120 mg PO DAILY 10/09/23 03/05/24 03/05/24 History release pravastatin 40 mg tablet 40 mg PO DAILY 02/05/24 03/05/24 03/04/24 History Physical Exam Vital Signs and Narrative: Vital Signs: Last Vital Signs Temp 97.8 F 03/05/24 11:48 Pulse 78 03/05/24 11:48 Resp 18 03/05/24 11:48 BP 190/95 H 03/05/24 11:48 Pulse Ox 100 03/05/24 11:48 O2 Del Method Room Air 03/05/24 11:48 O2 Flow Rate 2 03/05/24 11:48 BMI result Body Mass Index 21.6 Appearing in no acute distress head is normocephalic atraumatic eyes pupils are PERRLA sclera is anicteric mouth throat mucous membranes are intact and moist neck is supple no lymphadenopathy, no JVD noted lung sounds are clear to auscultation heart regular rate rhythm, clear S1, S2 positive bowel sounds, abdomen is soft, nontender neuro patient is alert x3, no focal deficits Assessment and Plan (1) Avascular necrosis of bone: Status: Acute Plan 63-year-old man status post right total hip arthroplasty Right total hip arthroplasty Management as per surgical team Pain management Hypertension Elevated blood pressure post op give home dose of verapamil hydralazine 5mg Q4h prn for SBP>180 Hyperlipidemia Continue at discharge DVT prophylaxis with full-dose aspirin
--- NOTE | 2024-03-05 12:49 | PM.DS ---
DS: Providers Provider Date of Service: 03/06/24 Primary care physician: Maria Luisa Howell MD Consults: 03/05/24 11:48 Consult to Hospitalist Routine Comment: Consulting Provider: [facility] Reason For Exam: Medical managagement s/p R MANGO DS: Summary Hospital Course Hospital Course: The patient underwent a successful right total hip arthroplasty, they were transferred to PACU and then to the floor to recover. During their stay, their vitals were stable, afebrile at ( ). Labs were unremarkable, H/H ( ). POD 1 they were started on Aspirin 325mg po bid for DVT ppx, they also received Physical Therapy services twice a day. Prior to discharge, their dressing was clean dry and intact, and the plan was to be discharged home with VNA services. Time Attestation Discharge Coordination Time (in mins): 30 Quality: Safe Use of Opioids Does Pt have an Active Cancer Diagnosis on the Problem List?: No Quality: Stroke Does the patient have a stroke diagnosis?: No Physical Exam Vital Signs: Vital Signs: Last Vital Signs Temp 100.0 F 03/05/24 12:38 Pulse 78 03/05/24 11:48 Resp 18 03/05/24 11:48 BP 190/95 H 03/05/24 11:48 Pulse Ox 100 03/05/24 11:48 O2 Del Method Room Air 03/05/24 11:48 O2 Flow Rate 2 03/05/24 11:48 BMI result Body Mass Index 21.6 Const: General: cooperative, healthy appearing and no acute distress Resp: Effort & Inspection: normal respiratory effort and able to speak in complete sentences Cardio: Rate: regular rate Peripheral pulses: Peripheral pulses 2+ throughout GI: Palpation (GI): Soft to palpation Skin: Lesions: no lesions Rashes: no rashes Extrem: Other: right hip dressing is c/d/i. Able to dorsi/plantar flex. Calf is supple and nontender. Sensation intact. Pedal pulse intact. DS: Data Data Completed and Pending Pending studies at discharge: Pending at discharge 03/05/24 08:17 Surgical [PTH] Routine Discharge Plan Discharge Patient Disposition: Home, Self-Care Referrals: Fili Reed PA-C [Physician Professional Wrestler] - 03/21/24 9:30 am Discharge Medications: No Action (DME) walker Misc See Rx Instructions .MEDSUPPLY Qty: 1 0RF Rx Instructions: Folding Front wheeled walker pravastatin 40 mg tablet 40 mg PO DAILY famotidine [Pepcid AC] 10 mg tablet 20 mg PO DAILY PRN (Reason: Acid Reflux) verapamil 120 mg tablet extended release 120 mg PO DAILY Discharge Orders: Discharge Order (Routine); Ordered 03/06/24 Ordered By: Chaparrita Gordillo Diet: Advance to usual diet Activity on Discharge: Use cane or walker Activity Restrictions/Additional Instructions: Physical Therapy for total hip arthroplasty: posterior precautions, gait training, ROM, strength Limit stair climbing No showering, no tub bath-keep dressing clean, dry and intact No driving x6 weeks Continue anticoagulant x 6 weeks Follow up with [facility] in 2 weeks Print Language: Polish
--- NOTE | 2024-03-05 12:50 | P.F2F_ITS ---
Service Date Service Date: 03/05/24 Encounter Date of encounter: 03/06/24 Reasons for Services Signs and symptoms assessed: s/p RTHA Pt. is considered homebound due to recent surgery. Unable to drive, poor balance, poor gait mechanics. Reason for physical therapy: home safety and mobility, therapeutic exercises, restore joint function, gait/transfer training and ADL training Reason for occupational therapy: home safety and mobility, therapeutic exercises, restore joint function, gait/transfer training and ADL training Homebound: Leaving the home is medically contraindicated at this time without the asist of a device and/or another person due th the listed conditions above and below. Reason homebound: unsteady gait / fall risk, leg weakness, pain with ambulation, poor balance / fall risk and unable to drive Certification: Based on the above findings, I certify that this patient is confined to the home and needs intermittent intermediate care, physical therapy and/or speech therapy, or continues to need occupational therapy. The patient is under my care, and I have initiated the establishment of the plan of care. The patient will be followed by a physician who will periodically review the plan of care. Time Spent With Patient Time: Total time managing care of this patient today ____ minutes.
[2024-03-05] MEDS: hydrALAZINE HCl 20 MG/ML VIAL 5 MG IVPUSH (13:34)
[2024-03-05] MEDS: ceFAZolin Sodium/Dextrose,Iso 2 GM/50 ML PIGGYBACK IV (13:44)
[2024-03-05] MEDS: Celecoxib 200 MG CAPSULE PO (20:23)
[2024-03-05] MEDS: Docusate Sodium 100 MG CAPSULE PO (20:23)
[2024-03-06 02:07] VITALS: BP 142/76; PULSE 86; RESP 18; TEMP 36.6; O2SAT 96
[2024-03-06] MEDS: oxyCODONE HCl Immed Release 5 MG TABLET PO ×2 (03:03→07:12)
[2024-03-06] MEDS: Lactated Ringers 1,000 ML 100 ML IVCONT (03:04)
[2024-03-06 06:19] LABS: MANUAL DIFF FLAG NO
[2024-03-06 06:31] LABS: Basophils Percent Auto 0.1 % (0-2); Eosinophils Percent Auto 0.1 % (0-4); Hematocrit 33.9 % (42.0-52.0); Hemoglobin 11.9 g/dl (14.0-18.0); Imm Gran Abs Auto 0.03 X10*3/uL (0.00-0.03); Imm Gran Pct Auto 0.4 % (0.0-0.4); Lymphocytes Absolute Auto 0.9 X10*3/uL (1.2-4.9); Lymphocytes Percent Auto 11.3 % (20-40); Mean Corpuscular HGB Conc 35.1 g/dl (31.0-36.0); Mean Corpuscular Hemoglobin 33.6 pg (27.0-33.0); Mean Corpuscular Volume 95.8 fL (80.0-98.0); Mean Platelet Volume 9.8 fL (9.4-12.4); Monocytes Percent Auto 12.7 % (2-11); Neutrophils Absolute Auto 6.1 x10*3/uL (2.0-8.3); Neutrophils Percent Auto 75.4 % (45-73); Platelet Count 150 X10*3/uL (160-400); Red Blood Count 3.54 X10*6/uL (4.60-5.80); Red Cell Distribution Width 12.2 % (11.0-16.0); White Blood Count 8.1 X10*3/uL (4.8-10.8)
[2024-03-06 06:39] LABS: Anion Gap 12 (12-20); Blood Urea Nitrogen 9 mg/dL (9-16); Calcium 8.6 mg/dL (8.4-10.2); Carbon Dioxide 22 mmol/L (22-29); Chloride 103 mmol/L (96-108); Creatinine Clr Calc Pharmacy 97.5; Estimated Glomerular Filt Rate > 60; Glucose Fasting 132 mg/dL (60-99); Sodium 133 mmol/L (135-145)
[2024-03-06 07:00] VITALS: BP 179/82; PULSE 68; RESP 16; TEMP 36.6; O2SAT 99
[2024-03-06] MEDS: VerapamiL HCL SR 120 MG TABLET.ER PO (07:10)
[2024-03-06] MEDS: Celecoxib 200 MG CAPSULE PO (07:10)
[2024-03-06] MEDS: oxyCODONE HCl ER 10 MG TAB.ER.12H PO (07:11)
[2024-03-06] MEDS: Docusate Sodium 100 MG CAPSULE PO (07:11)
[2024-03-06] MEDS: Aspirin 325 MG TABLET PO (07:11)
[2024-03-06] MEDS: Acetaminophen 325 MG TABLET 650 MG PO (07:11)
--- NOTE | 2024-03-06 09:13 | MHC.CM.PN ---
Addendum entered by Ariadna Monae 03/06/24 09:42: Patient discharged to home with [facility]. His provided transportation home. Original Note: Patient S/P R MANGO lives w .independent with cane. DP home with [facility] referred from Ortho office. Patients will transport home.
== END 2024-03-06 09:14 | disposition home health service (06) ==
LOC: HO.SSS 05:58 → HO.S3 10:14
PROVIDERS: Physician Assistant; PCP Internal Medicine; Visit Provider Orthopaedic Surgery
PROC: (CPT 27130; principal; 2024-03-05 07:30)
DX: M87.051 Idiopathic aseptic necrosis of right femur (principal); M25.551 Pain in right hip; M16.11 Unilateral primary osteoarthritis, right hip; M25.451 Effusion, right hip; I10 Essential (primary) hypertension; E78.00 Pure hypercholesterolemia, unspecified; K21.9 Gastro-esophageal reflux disease without esophagitis; G44.009 Cluster headache syndrome, unspecified, not intractable; G58.9 Mononeuropathy, unspecified; Z79.899 Other long term (current) drug therapy; F10.20 Alcohol dependence, uncomplicated; Z98.890 Other specified postprocedural states; Z87.891 Personal history of nicotine dependence
CPT/HCPCS: 27130; 36415; 72170; 80048; 85025; 86850; 86900; 86901; 87640; 87641; 88304; 88305; 88311; 97116; 97161; 97165; C1776; J0131; J0360; J0690; J1100; J1171; J2003; J2250; J2405; J2704; J2795; J3010; J7120

== ENCOUNTER → 2024-03-05 05:58 | Outpatient (BNV) | payer OTHER, SELFPAY | PROVIDERS: PCP Internal Medicine; Visit Provider Orthopaedic Surgery | DX: Z47.1 Aftercare following joint replacement surgery (principal); Z96.641 Presence of right artificial hip joint | CPT/HCPCS: 27130; 99024; G0180 ==

== ENCOUNTER → 2024-03-05 05:58 | Outpatient (BNV) | payer OTHER, SELFPAY | PROVIDERS: PCP Internal Medicine; Visit Provider Nurse Practitioner Acute Care | DX: M87.00 Idiopathic aseptic necrosis of unspecified bone (principal) | CPT/HCPCS: 99222 ==

== ENCOUNTER 2024-03-11 11:07 | Outpatient (AMB) | payer OTHER, SELFPAY ==
--- NOTE | 2024-03-11 11:10 | A.OFFVIS_ITS ---
Vital Signs 03/11/24 11:13 Height 5 ft 8 in Weight 146 lb BMI 22.2 Intake Visit Reasons: PO: Bandage Change, R MANGO w/NE 03/05/24 Intake Note: Chris is a 63 year old male who presents today post operatively for a bandage change s/p right MANGO DOS: 03/05/2024 w/ Dr Samaniego. Patient's bandage is saturated and is here today to get this replaced. He states he has no concerns for today. Allergies No Known Allergies Allergy (Verified 03/11/24 11:13) HPI HPI PO: Bandage Change, R MANGO w/NE 03/05/24 : Details: Patient is a 63-year-old male who presents for bandage change status post right MANGO with Dr. Samaniego, DOS 03/05/2024. Patient reports that he is dressing is saturated, then his occupational therapist express to him that he should probably have it changed. Patient reports that he has no other acute complaints or concerns at this time. Patient feels that he is recovering well from his procedure. No other acute complaints or concerns [facility] Medical History HTN (hypertension) Avascular necrosis Alcohol dependence Chronic GERD Cluster headache High cholesterol Surgical History Hx of cataract surgery History of back surgery History of colonoscopy History of neck surgery Family History Mother Cancer Father Heart attack Social History Household Members: Spouse Housing: House Are you a primary senior resident care director to a significant other at home: No Do you presently have visiting nurse or other home services: No 75 years or older and lives alone: No Alcohol intake: current Alcohol intake frequency: a few times a month Alcohol type: beer Patient Tobacco Use Status: Former Tobacco user Tobacco use type: Cigarette Cigarettes Per Day: 27 Years Smoked: 38 e-Cigarette/Vaping Use: Never Used Substance Use Type: Marijuana service: No Current occupational status: employed 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 Cognitive needs: No Hearing needs: No Vision needs: No Review of Systems Const All systems reviewed & are unremarkable except as noted in HPI and below Physical Exam Vital Signs: BMI result Body Mass Index 22.2 Extrem Other: Dressing on left hip intact, but starting to No evidence of surrounding erythema, ecchymosis No evidence of infection patient is ambulatory with a slightly antalgic gait with a cane Patient is able to flex and extend the digits of the left foot without difficulty Compartments soft, nontender Distal sensation intact Capillary refill brisk Assessment & Plan Assessment & Plan (1) Status post total hip replacement, right: Code(s): Z96.641 - Presence of right artificial hip joint Category: Surgical Plan 1. Status post right MANGO Aquacel dressing change today Patient was advised again on posterior precautions, keeping the dressing clean dry and intact, and to keep his previously scheduled 2 week follow-up for staple removal and reassessment Patient is also advised to continue working with therapy and doing exercises to improve his range of motion Patient was amenable to this plan Patient will follow-up for previously scheduled 2 week postoperative appointment status post right MANGO, sooner with any acute concerns Coding Level of Care Code Global (30817) Diagnoses Status post total hip replacement, right Z96.641
[2024-03-11 11:13] VITALS: BMI 22.2
== END 2024-03-11 11:33 | disposition home or self-care (01) ==
LOC: HO.HOS 11:07
PROVIDERS: PCP Internal Medicine
DX: Z47.1 Aftercare following joint replacement surgery (principal); Z96.641 Presence of right artificial hip joint
CPT/HCPCS: 99024

== ENCOUNTER 2024-03-21 09:13 | Outpatient (AMB) | payer OTHER, SELFPAY ==
--- NOTE | 2024-03-21 08:35 | A.OFFVIS_ITS ---
Vital Signs 03/21/24 09:37 Height 5 ft 8 in Weight 146 lb BMI 22.2 Intake Visit Reasons: 2WK PO: R MANGO w/NE 03/05/24 Intake Note: Chris a 63 year old male who presents today for a post operative right MANGO, DOS 03/05/24. Patient reports he is doing okay, he continues to have pain and soreness. His current pain level is a 6 out of 10. Allergies No Known Allergies Allergy (Verified 03/21/24 09:35) Medication List - Last Reconciled 03/21/24 by Fili Reed PA-C acetaminophen 650 mg (2 x 325 mg) PO Q6H PRN 30 days aspirin 325 mg PO BID 30 days celecoxib 200 mg PO BID 30 days docusate sodium 100 mg PO BID 30 days famotidine (Pepcid AC) 20 mg PO DAILY PRN oxycodone 5 mg PO Q4H PRN 7 days pravastatin 40 mg PO DAILY verapamil ER 120 mg PO DAILY walker Folding Front wheeled walker HPI HPI 2WK PO: R MANGO w/NE 03/05/24: Details: 53-year-old gentleman returns to the office today status post right total hip arthroplasty 03/05/[address] Samaniego. Patient states he has some pain around the hip and into the thigh. He is ambulating with a cane. He will transition to outpatient PT next week. [facility] Medical History HTN (hypertension) Avascular necrosis Alcohol dependence Chronic GERD Cluster headache High cholesterol Surgical History Hx of cataract surgery History of back surgery History of colonoscopy History of neck surgery Family History Mother Cancer Father Heart attack Social History Household Members: Spouse Housing: House Are you a primary child care development specialist to a significant other at home: No Do you presently have visiting nurse or other home services: No 75 years or older and lives alone: No Alcohol intake: current Alcohol intake frequency: a few times a month Alcohol type: beer Patient Tobacco Use Status: Former Tobacco user Tobacco use type: Cigarette Cigarettes Per Day: 27 Years Smoked: 38 e-Cigarette/Vaping Use: Never Used Substance Use Type: Marijuana service: No Current occupational status: employed 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 No erythema. No swelling. No pain with range of motion of the hip. Mild discomfort with hip flexion. Neurovascularly intact. Results Reviewed Results Reviewed: Date of Service: 03/05/24 Pre-op diagnosis: Right Hip OA Post-op diagnosis: same Procedure: Right MANGO Implants: Chari Trident2 50; Accolade 2 #6 132/ +0 36 ceramic Surgeon: Obie Samaniego MD Assessment & Plan Assessment & Plan (1) Status post total hip replacement, right: Code(s): Z96.641 - Presence of right artificial hip joint Category: Surgical Plan: [place] removed today Steri-Strips applied. He will transition to outpatient therapy [facility]. He will continue to work on gait training and glute strengthening exercises. Educated him on proper hygiene of the incision area. No driving for another 4 weeks. He will return to see us back on April 11 with his routine postop appointment with Dr. Samaniego. Coding Level of Care Code Global (32922) Diagnoses Status post total hip replacement, right Z96.641
[2024-03-21 09:37] VITALS: BMI 22.2
== END 2024-03-21 10:16 | disposition home or self-care (01) ==
PROVIDERS: PCP Internal Medicine; Visit Provider Physician Assistant
DX: Z96.641 Presence of right artificial hip joint (principal)
CPT/HCPCS: 99024

== ENCOUNTER 2024-04-11 08:17 | Outpatient (REF) | payer OTHER, SELFPAY ==
--- NOTE | ~2024-04-11 | XR_ITS ---
CLINICAL HISTORY: M25.559 - Pain in unspecified hip Exam: AP pelvis radiograph. Comparison: None. Findings: Right total hip arthroplasty is identified. Position and alignment of the prosthesis is appropriate. No fracture or abnormal lucency is seen adjacent to the surgical hardware. Alignment of the left hip joint is anatomic. Left hip joint space is well preserved. Sacroiliac joints and pubic symphysis are unremarkable. Partial visualization of the spinal fusion hardware at the L3-4 disc level. Impression: Intact right hip arthroplasty. This document has been electronically signed by: Tayo Panchal MD on 04/12/2024 08:09:04
== END 2024-04-11 08:18 | disposition home or self-care (01) ==
LOC: HO.HOSX 08:17
PROVIDERS: PCP Internal Medicine; Visit Provider Orthopaedic Surgery
DX: M25.559 Pain in unspecified hip (principal); Z96.641 Presence of right artificial hip joint
CPT/HCPCS: 72170

== ENCOUNTER 2024-04-11 08:17 | Outpatient (AMB) | payer OTHER, SELFPAY ==
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
[2024-04-11 08:19] VITALS: BMI 22.2
== END 2024-04-11 09:07 | disposition home or self-care (01) ==
PROVIDERS: PCP Internal Medicine; Visit Provider Orthopaedic Surgery
DX: Z96.641 Presence of right artificial hip joint (principal)
CPT/HCPCS: 99024

== ENCOUNTER 2024-05-16 08:51 | Outpatient (RCR) | payer OTHER, SELFPAY ==
--- NOTE | 2024-03-27 17:34 | MHC.PT.EP ---
[facility] [place] Office [place] Office [place] Office [address] [phone] F: [phone] F: [phone] F: [phone] F: [phone] Physical Therapy Plan of Care Date of Evaluation: 03/27/24 Date of Surgery: 03/05/24 Diagnosis: s/p R MANGO 03/05/24 Assessment: Pt is a 63 y/o male with PMHx significant for HTN, Avascular necrosis, Chronic GERD, History of back surgery, History of neck surgery who is referred to PT for eval and treat of s/p R MANGO DOS 03/05/24 for management of R hip AVN and pain; his condition is resulting in decreased tolerance for walking increased distances, standing for long duration, negotiating stairs, performing squatting activities and heavy HH chores secondary to decreased R hip ROM and strength, gait abnormality, surgical healing process, and pain. Pt is deemed an appropriate candidate to receive skilled PT services to address their physical impairments in order to improve their functional ability. Frequency and Duration: The patient will be seen 1 x / wk x 6 wks. Short Term Goals: Initiate home program. Retirement Goals: Pt will ascend and descend 1 fl of stairs with reciprocal fashion and managed Sx. Pt will be I with his HEP. Pt will improve R hip abd MMT by at least 1\/2 MMT grade. Pt will improve LEFI outcome by at least 10 points. Pt will be able to walk 2 blocks w/o difficulty. Treatment Plan: Modalities to reduce pain, spasms and effusion. Manual therapy to restore motion and function. Therapeutic exercise to improve strength and flexibility. Neuromuscular re-education for posture and balance. Therapeutic activities to return to functional activities of daily living. Electronically signed by: Azael Llanos PT. Please sign and return to therapist. Thank you for your referral.
--- NOTE | 2024-05-16 09:51 | MHC.PT.DC ---
[facility] [place] Office [place] Office [place] Office [address] Alejandra Koch 140 [facility] [phone] F: [phone] F: [phone] F: [phone] F: [phone] Physical Therapy Discharge Report Diagnosis: s/p R MANGO 03/05/24 Date of Surgery: 03/05/24 Date of Evaluation: 03/27/24 Date of Discharge: 05/16/24 Treatments to Date: 13 Cancellations to Date: No Shows to Date: Discharge Status: Achieved Goals Improved Function Independent with HEP Discharge Summary: Chris has been an active participant in his therapy in and out of the clinic, he has met his therapeutic goals, is I with his home program, and is in agreement with DC at this time. Electronically signed by: Azael Llanos PT. Please sign and return to therapist. Thank you for your referral.
== END 2024-05-16 09:52 | disposition home or self-care (01) ==
LOC: HO.PT 08:51
PROVIDERS: PCP Internal Medicine; Visit Provider Physician Assistant
DX: Z47.1 Aftercare following joint replacement surgery (principal); Z96.641 Presence of right artificial hip joint
CPT/HCPCS: 97110; 97112; 97116; 97140; 97162; 97530

== ENCOUNTER 2024-05-23 10:47 | Outpatient (REF) | payer OTHER, SELFPAY ==
--- NOTE | ~2024-05-23 | XR_ITS ---
EXAMINATION: XR HIP 2 OR MORE VIEWS RIGHT HISTORY: M25.559 - Pain in unspecified hip COMPARISON: Comparison is made with the prior examination dated 04/11/2024. FINDINGS: A single AP view of the pelvis and 2 views of the right hip are submitted. The patient is again noted to be status post right total hip arthroplasty. The orthopedic elements are in anatomic alignment. There is no radiographic evidence of loosening. There is no fracture or dislocation. The patient is status post lower lumbar fusion which is partially imaged. The soft tissues are unremarkable. XR/XR hip RT min 2V IMPRESSION: Status post right total hip arthroplasty. Electronically signed by: Chris Reyes MD 05/27/2024 08:40 AM EDT
--- OUTSIDE RECORDS SUMMARY | 2024-05-24 12:17 | XMS_ITS | Clinical Summary ---
Author Organization [facility] Address [address] [place] [address] Care Team Providers Care Auto Body Builder Apprentice Name Role Phone Maria Luisa Howell MD Primary Care Provider [phone] Allergies No known active allergies Medications Medication [...] this topic Medical Devices Implanted Type Area Gypsum Roofer Device Identifier Shelf Expiration Date Model / Serial / Lot Surgiflo Hemostatic Matrix Jnj-Ethi [id number] - [id number] Implanted:Qty : 1 on 09/07/2022 by Tello Estevez MD at [facility] Hemostatic Agent Posterior : Spine Lumbar [employer]NJ [employer] 02/17/2024 2991 / / [id number] Cacellous 1-8mm Implanted:Qty : 1 on 09/07/2022 by Tello Estevez MD at [facility] Posterior : Spine Lumbar JOANN SPINE 12/02/2026 [id number] / [id number] / Vesuvius 100 Dbm Bone Putty 10 Stry-K2m [id number] - [id number] Implanted:Qty : 1 on 09/07/2022 by Tello Estevez MD at [facility] Posterior : Spine Lumbar JOANN SPINE 06/17/2025 [id number] 0DP / [id number] / Shell Short Flarehawk 25mm Fh9 [facility]- [id number] - [id number] Implanted:Qty : 1 on 09/07/2022 by Tello Estevez MD at [facility] Posterior : Spine Lumbar [employer] [id number] / / Cage Spinal Flarehawk 0 D L25 [facility] [id number] - [id number] Implanted:Qty : 1 on 09/07/2022 by Tello Estevez MD at [facility] Posterior : Spine Lumbar [employer] [id number] / / Screw Wendy Polyaxial Extended Tab 6.5x45mm Stry-K2m [id number] 49853 - [id number] Implanted:Qty : 4 on 09/07/2022 by Tello Estevez MD at [facility] Posterior : Spine Lumbar JOANN SPINE [id number] / / Screw Set [place] Stry-K2m [id number] 7771 - [id number] Implanted:Qty : 4 on 09/07/2022 by Tello Estevez MD at [facility] Posterior : Spine Lumbar JOANN SPINE [id number] 1 / / Junior Contr Blt Hex 5.5x40mm Stry-K2m [id number]-[id number] 8134 - [id number] Implanted:Qty : 2 on 09/07/2022 by Tello Estevez MD at [facility] Posterior : Spine Lumbar JOANN SPINE 1001-[id number] 0 / / Explanted Type Area Gypsum Roofer Device Identifier Shelf Expiration Date Model / Serial / Lot Pin [place] Sd [id number] Hlf 30thrd Stry-Howm [id number] [id number] - [id number] Explanted:Qty: 2 on 09/07/2022 by Tello Estevez MD at [facility] Left: Iliac [facility]rest [facility] 5023-3-120 / / Advance Directives For more information, please contact: [phone] Latest Code Status on File Code Status Date Activated Date Inactivated Comments Full Code 09/07/2022 12:21 PM 09/08/2022 8:48 PM This code status was ascertained in the following way: discussion with patient . Care Teams Auto Body Builder Apprentice Relationship Specialty Start Date End Date Maria Luisa Howell MD PCP - General Internal Medicine 07/04/22
--- OUTSIDE RECORDS SUMMARY | 2024-05-24 12:17 | XMS_ITS | Clinical Summary ---
Author Organization [facility] it Address [address] [place] [address] Care Team Providers Care Leather Leveler Name Role Phone Maria Luisa Howell MD Primary Care Provider [phone] Surgical History Surgery Date Site/Laterality Comments COLONOSCOPY PROCEDURE:COLONOSCOPY LUMBAR FUSION 09/07/2022 Posterior PROCEDURE:LUMBAR FUSION;COMMENT:Procedure: RIGHT L3/4 FUSION SPINE LUMBAR - TLIF 1 LEVEL; Surgeon: Tello Estevez MD; Location: [facility]); Service: Spine; Laterality: Posterior; AUTOGRAFT/SPINE SURGERY 09/07/2022 N/A PROCEDURE:AUTOGRAFT/SPINE SURGERY;COMMENT:Procedure: AUTOGRAFT BONE SPINE; Surgeon: Tello Estevez MD; Location: [facility]); Service: Spine; Laterality: N/A; SPINE SURGERY 09/07/2022 N/A PROCEDURE:SPINE SURGERY;COMMENT:Procedure: LAMINECTOMY, FACETECTOMY, OR FORAMINOTOMY LUMBAR DURING POSTERIOR INTERBODY ARTHRODESIS SINGLE VERTEBRAL SEGMENT; Surgeon: Tello Estevez MD; Location: [facility]); Service: Spine; Laterality: N/A; LUMBAR EPIDURAL INJECTION 12/15/2022 Right PROCEDURE:LUMBAR EPIDURAL INJECTION;COMMENT:Procedure: INJECTION ANESTHETIC AGENT LUMBAR Transforaminal; Surgeon: Susannah Tanner MD; Location: [facility]; Service: Rehab Medicine; Laterality: Right; Medical [...] this topic Medical Devices Implanted Type Area Radiology Transcriptionist Device Identifier Shelf Expiration Date Model / Serial / Lot Surgiflo Hemostatic Matrix [facility]-Ethi [id number] Implanted:Qty: 1 on 09/07/2022 by Tello Estevez MD Implants N/A: Spine Lumbar [facility] ETHICON INC 02/17/2024 2991 / / [id number] Cacellous 1-8mm Implanted:Qty: 1 on 09/07/2022 by Tello Estevez MD N/A: Spine Lumbar JOANN SPINE 12/02/2026 [id number] / [id number] / Vesuvius 100 Dbm Bone Putty 10 Stry-K2m [id number] - [id number] Implanted:Qty: 1 on 09/07/2022 by Tello Estevez MD N/A: Spine Lumbar JOANN SPINE 06/17/2025 [id number] / [id number] / Shell Short Flarehawk 25mm Fh9 Intg-Manu [id number] Implanted:Qty: 1 on 09/07/2022 by Tello Estevez MD N/A: Spine Lumbar [employer] [id number] / / Cage Spinal Flarehawk 0 D L25 Intg-Manu [id number] Implanted:Qty: 1 on 09/07/2022 by Tello Estevez MD N/A: Spine Lumbar [employer] [id number] / / Screw Wendy Polyaxial Extended Tab 6.5x45mm Stry-K2m [id number] Implanted:Qty: 4 on 09/07/2022 by Tello Estevez MD N/A: Spine Lumbar JOANN SPINE [id number] / / Screw Set [place]uevo Stry-K2m [id number] Implanted:Qty: 4 on 09/07/2022 by Tello Estevez MD N/A: Spine Lumbar JOANN SPINE [id number] / / Junior Contr Blt Hex 5.5x40mm Stry-K2m [id number] Implanted:Qty: 2 on 09/07/2022 by Tello Estevez MD N/A: Spine Lumbar JOANN SPINE [id number] / / Care Teams Leather Leveler Relationship Specialty Start Date End Date Maria Luisa Howell MD PCP - General 07/04/22
== END 2024-05-23 10:48 | disposition home or self-care (01) ==
LOC: HO.HOSX 10:47
PROVIDERS: Visit Provider Physician Assistant
DX: Z47.1 Aftercare following joint replacement surgery (principal); Z96.641 Presence of right artificial hip joint
CPT/HCPCS: 73502

== ENCOUNTER 2024-05-23 12:16 | Outpatient (AMB) | payer OTHER, SELFPAY ==
--- NOTE | 2024-05-23 12:28 | A.OFFVIS_ITS ---
Intake Visit Reasons: PO - right MANGO 03/05/24 NE Intake Note: Chris is a 63 year old male who presents today for a post operative appointment s/p right MANGO 03/05/24 NE. Patient reports he is doing better. He mentions that he finished with PT and he is doing them at home as well. Allergies No Known Allergies Allergy (Verified 05/23/24 12:37) HPI HPI PO - right MANGO 03/05/24 NE: Details: Mr. Knott presents the office today for routine follow-up status post right total hip arthroplasty performed on 03/05/[address] Samaniego. He reports that he has some slight discomfort in the quad area due to muscle fatigue. He has finished his course of physical therapy and continues his home exercise program. [facility] Medical History HTN (hypertension) Avascular necrosis Alcohol dependence Chronic GERD Cluster headache High cholesterol Surgical History Hx of cataract surgery History of back surgery History of colonoscopy History of neck surgery Family History Mother Cancer Father Heart attack Social History Household Members: Spouse Housing: House Are you a primary palliative care nurse practitioner to a significant other at home: No Do you presently have visiting nurse or other home services: No 75 years or older and lives alone: No Alcohol intake: current Alcohol intake frequency: a few times a month Alcohol type: beer Patient Tobacco Use Status: Former Tobacco user Tobacco use type: Cigarette Cigarettes Per Day: 27 Years Smoked: 38 e-Cigarette/Vaping Use: Never Used Substance Use Type: Marijuana service: No Current occupational status: employed 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 No tenderness to palpation over the greater trochanteric bursa. Able to perform straight leg raise. NVI. Assessment & Plan Assessment & Plan (1) Status post total hip replacement, right: Code(s): Z96.641 - Presence of right artificial hip joint Category: Surgical Plan Mr. Knott presents the office today for routine follow-up status post right total hip arthroplasty performed on 03/05/[address] Samaniego. He reports that he has some slight discomfort in the quad area due to muscle fatigue. He has finished his course of physical therapy and continues his home exercise program. Patient will continue with his posterior precautions. He will continue with home exercise program and continue to work on glute core quad strengthening. He will follow-up in 3 months with repeat x-rays, sooner if needed. X-rays of the the right hip and pelvis which were obtained while in the office today and were reviewed by me, Chaparrita Gordillo PA-C, revealed intact right hip arthroplasty with proper alignment. Orders: Orders XR hip RT min 2V Today M25.559 - Pain in unspecified hip Coding Level of Care Code Global (53560) Diagnoses Status post total hip replacement, right Z96.641
--- OUTSIDE RECORDS SUMMARY | 2024-05-23 14:48 | XMS_ITS | Clinical Summary ---
Author Organization [facility] it Address [address] [place] [address] Care Team Providers Care Bobtailer Name Role Phone Maria Luisa Howell MD Primary Care Provider [phone] Surgical History Surgery Date Site/Laterality Comments COLONOSCOPY PROCEDURE:COLONOSCOPY LUMBAR FUSION 09/07/2022 Posterior PROCEDURE:LUMBAR FUSION;COMMENT:Procedure: RIGHT L3/4 FUSION SPINE LUMBAR - TLIF 1 LEVEL; Surgeon: Tello Estevez MD; Location: [facility]); Service: Spine; Laterality: Posterior; AUTOGRAFT/SPINE SURGERY 09/07/2022 N/A PROCEDURE:AUTOGRAFT/SPINE SURGERY;COMMENT:Procedure: AUTOGRAFT BONE SPINE; Surgeon: Tello Estevez MD; Location: [facility] Service: Spine; Laterality: N/A; SPINE SURGERY 09/07/2022 N/A PROCEDURE:SPINE SURGERY;COMMENT:Procedure: LAMINECTOMY, FACETECTOMY, OR FORAMINOTOMY LUMBAR DURING POSTERIOR INTERBODY ARTHRODESIS SINGLE VERTEBRAL SEGMENT; Surgeon: Tello Estevez MD; Location: [facility]); Service: Spine; Laterality: N/A; LUMBAR EPIDURAL INJECTION 12/15/2022 Right PROCEDURE:LUMBAR EPIDURAL INJECTION;COMMENT:Procedure: INJECTION ANESTHETIC AGENT LUMBAR Transforaminal; Surgeon: Susannah Tanner MD; Location: [facility]; Service: Rehab Medicine; Laterality: Right; Medical History Medical History Date Comments High blood pressure DX:High bloo d pressure Hyperlipidemia DX:Hyperlipidemi a GERD (gastroesophageal reflux disease) DX:GERD (gastroesophageal reflux disease) Diverticulosis DX:Diverticulosi s;COMMENT:Diverticular Disease per PCP H+P Cluster headaches DX:Cluster hea daches;COMMENT:per PCP Hemangioma of liver DX:Hemangiom a of liver;COMMENT:Per PCP Hearing loss DX:Hearing loss; COMMENT:Per PCP ETOH abuse DX:ETOH abuse;CO MMENT:PER PCP Pain DX:Pain;COMMENT: back and right leg Social History Tobacco Use Types Packs/Day Years Used Date Smoking Tobacco: Former Cigarettes Q uit: 09/05/2022 Smokeless Tobacco: Never Alcohol Use Standard Drinks/Week Comments Yes 42 (1 standard drink = 0.6 oz pu re alcohol) Sex and Gender Information Value Date Recorded Sex Assigned at Not on file Legal Sex Male 2:57 AM EST Gender Identity Not on file Sexual Orientation Not on file Obstetrics History Last Filed Vital Signs Vital Sign Reading Time Taken Comments Blood Pressure 155/96 01/13/2023 3:02 PM EDT Pulse 99 01/13/2023 3:02 PM EDT Temperature - - Respiratory Rate - - Oxygen Saturation - - Inhaled Oxygen Concentration - - Weight 63.8 kg (140 lb 9.6 oz) 01/13/2023 3:02 P M EDT Height 170.2 cm (5' 7 ) 01/13/2023 3:02 PM EDT Body Mass Index 22.02 01/13/2023 3:02 PM EDT Plan of Treatment Health Maintenance Due Date Last Done Comments Hepatitis A Vaccines (1 of 2 - Risk 2-dose series) 1980 Pneumococcal Vaccine: 50+ Ye ars (1 of 1 - PCV) 11/01/2011 Zoster Vaccines (1 of 2) 11/01/2011 Hepatitis B Vaccines (1 of 3 - Risk 3-dose series) 2021 RSV Immunization Patients 60 + Years Old (1 - Risk 60-74 years 1-dose series) 2021 Cholesterol Screening (Lipid Panel) 02/26/2022 Colorectal Cancer Screening: Colonoscopy 02/26/2022 Depression Screening 02/26/2022 HIV Screening 02/26/2022 Hepatitis C Screening 02/26/2022 Lung Cancer Screening (Low D ose CT) 02/26/2022 Social Influencers of Health Screening 02/26/2022 Hypertension/CHF/CAD Annual BMP Blood Test 03/03/2022 DTaP,Tdap,and Td Vaccines (2 - Td or Tdap) 02/27/2023 02/27/2013 COVID-19 Vaccine (1 - 2023-2 5 season) 2023 Influenza Vaccine (#1) 2023 HIB Vaccines Aged Out No longer eligi ble based on patient's age to complete this topic HPV Vaccines Aged Out No longer eligi ble based on patient's age to complete this topic IPV Vaccines Aged Out No longer eligi ble based on patient's age to complete this topic MMR Vaccines Aged Out No longer eligi ble based on patient's age to complete this topic Meningococcal ACWY Vaccine Aged Out N o longer eligible based on patient's age to complete this topic Meningococcal B Vacine Aged Out No lo nger eligible based on patient's age to complete this topic Pneumococcal Vaccine: Pediat rics (0 to 5 Years) and At-Risk Patients (6 to 64 Years) Aged Out No longer eligi ble based on patient's age to complete this topic RSV Immunization Patients Un radha 20 months Aged Out No longer eligible b ased on patient's age to complete this topic Varicella Vaccines Aged Out No longer eligible based on patient's age to complete this topic Medical Devices Implanted Type Area Chassis Driver Device Identifier Shelf Expiration Date Model / Serial / Lot Surgiflo Hemostatic Matrix [facility] [id number] Implanted:Qty: 1 on 09/07/2022 by Tello Estevez MD Implants N/A: Spine Lumbar [facility] ETH[employer] INC 02/17/2024 [id number] / / [id number] Cacellous 1-8mm Implanted:Qty: 1 on 09/07/2022 by Tello Estevez MD N/A: Spine Lumbar JOANN SPINE 12/02/2026 [id number] / [id number] / Vesuvius 100 Dbm Bone Putty 10 Stry-K2m [id number] - [id number] Implanted:Qty: 1 on 09/07/2022 by Tello Estevez MD N/A: Spine Lumbar JOANN SPINE 06/17/2025 [id number] / [id number] / Shell Short Flarehawk 25mm Fh9 Intg-Manu [id number] Implanted:Qty: 1 on 09/07/2022 by Tello Estevez MD N/A: Spine Lumbar [employer] [id number] / / Cage Spinal Flarehawk 0 D L25 Intg-Manu [id number] Implanted:Qty: 1 on 09/07/2022 by Tello Estevez MD N/A: Spine Lumbar [employer] [id number] / / Screw Wendy Polyaxial Extended Tab 6.5x45mm Stry-K2m [id number] Implanted:Qty: 4 on 09/07/2022 by Tello Estevez MD N/A: Spine Lumbar JOANN SPINE [id number] / / Screw Set [place] Stry-K2m [id number] Implanted:Qty: 4 on 09/07/2022 by Tello Estevez MD N/A: Spine Lumbar JOANN SPINE [id number] / / Junior Contr Blt Hex 5.5x40mm Stry-K2m [id number] Implanted:Qty: 2 on 09/07/2022 by Tello Estevez MD N/A: Spine Lumbar JOANN SPINE [id number] / / Care Teams Bobtailer Relationship Specialty Start Date End Date Maria Luisa Howell MD PCP - General 07/04/22
--- OUTSIDE RECORDS SUMMARY | 2024-05-23 14:48 | XMS_ITS | Clinical Summary ---
Author Organization [facility] Address [address] [place] [address] Care Team Providers Care Binder Lockstitch Name Role Phone Maria Luisa Howell MD Primary Care Provider [phone] Allergies No known active allergies Medications Medication Sig Dispensed Refills Start Date End Date Status verapamil (CALAN-SR) 120 MG CR tablet 2 (two) times a day. 0 07/03/2022 Active famotidine (PEPCID) 20 MG tablet Take 1 tablet (20 mg total) by mouth daily. 0 Active acetaminophen (TYLENOL) 325 MG tablet Take 3 tablets (975 mg total) by mouth every 8 (eight) hours as needed for pain. 90 tablet 0 09/08/2022 Active Additional Information Patient not taking.Reason: Other, Reported on 01/13/2023 pravastatin (PRAVACHOL) tablet 40 mg Take 1 tablet (40 mg total) by mouth daily. 0 11/17/2022 Active gabapentin (NEURONTIN) 300 MG capsule Take 1 capsule (300 mg total) by mouth 3 (three) times a day. 0 Active Active Problems Problem Noted Date Diagnosed Date Degenerative lumbar spinal stenosis 09/07/2022 Lumbosacral radiculopathy at L3 07/27/2022 Right thigh pain 07/12/2022 Lumbar herniated disc 07/12/2022 Lumbar back pain with radicu lopathy affecting right lower extremity 07/12/2022 Social History Tobacco Use Types Packs/Day Years Used Date Smoking Tobacco: Former Cigarettes 1 35 Q uit: 09/05/2022 Smokeless Tobacco: Never Tobacco Cessation:Counseling Given: Not Answered Alcohol Use Standard Drinks/Week Comments Yes 42 (1 standard drink = 0.6 oz pu re alcohol) daily 5 beer or so Sex and Gender Information Value Date Recorded Sex Assigned at Male 07/04/2022 1:11 PM EDT Gender Identity Male 08/22/2022 8:07 AM EDT Sexual Orientation Not on file Job Start Date Occupation Industry Not on file Not on file Not on file Last Filed Vital Signs Vital Sign Reading Time Taken Comments Blood Pressure 155/96 01/13/2023 3:02 PM EDT Pulse 99 01/13/2023 3:02 PM EDT Temperature 36.2 ??C (97.2 ??F) 01/13/2023 3:02 PM E DT Respiratory Rate 22 12/15/2022 2:28 PM EDT Oxygen Saturation 98% 01/13/2023 3:02 PM EDT Inhaled Oxygen Concentration - - Weight 63.8 kg (140 lb 9.6 oz) 01/13/2023 3:02 P M EDT Height 170.2 cm (5' 7 ) 01/13/2023 3:02 PM EDT Body Mass Index 22.02 01/13/2023 3:02 PM EDT Plan of Treatment Health Maintenance Due Date Last Done Comments Hepatitis C Screening 1961 Lung Cancer Screening (Low Dose CT) 1961 Depression Screening 1973 Preventative Health Evaluation 11/01/1979 Tobacco Cessation Counseling 11/01/1979 Colon Cancer Screening (Colonoscopy) 2006 Shingrix-Zoster Vaccine (1 of 2) 11/01/2011 DTap / Tdap / Td (2 - Td or Tdap) 02/27/2023 02/27/2013 COVID-19 Vaccine ( season) 2023 10/01/2021, 02/25/2021, 07/29/2020, Additional history exists Influenza Vaccine (#1) 2023 RSV Adult > 60+ Yrs or (1 - 1-dose 75+ series) 2036 Hepatitis B Vaccines Aged Out No long er eligible based on patient's age to complete this topic Pneumococcal Vaccine Aged Out No long er eligible based on patient's age to complete this topic RSV Ped < 20 months Aged Out No longe r eligible based on patient's age to complete this topic Medical Devices Implanted Type Area Scrubber Operator Device Identifier Shelf Expiration Date Model / Serial / Lot Surgiflo Hemostatic Matrix Jnj-Ethi [id number] - [id number] Implanted:Qty : 1 on 09/07/2022 by Tello Estevez MD [facility] Hemostatic Agent Posterior : Spine Lumbar [employer] 02/17/2024 2991 / / [id number] Cacellous 1-8mm Implanted:Qty : 1 on 09/07/2022 by Tello Estevez MD at [facility] Posterior : Spine Lumbar JOANN SPINE 12/02/2026 [id number] / [id number] / Vesuvius 100 Dbm Bone Putty 10 Stry-K2m [id number] - [id number] Implanted:Qty : 1 on 09/07/2022 by Tello Estevez MD at [facility] Posterior : Spine Lumbar JOANN SPINE 06/17/2025 [id number] 0DP / [id number] / Shell Short Flarehawk 25mm Fh9 [facility]- [id number] - [id number] Implanted:Qty : 1 on 09/07/2022 by Tello Estevez MD at [facility] Posterior : Spine Lumbar [employer] [id number] / / Cage Spinal Flarehawk 0 D L25 [facility] [id number] - [id number] Implanted:Qty : 1 on 09/07/2022 by Tello Estveez MD at [facility] Posterior : Spine Lumbar [employer] [id number] / / Screw Wendy Polyaxial Extended Tab 6.5x45mm Stry-K2m [id number] [id number] - [id number] Implanted:Qty : 4 on 09/07/2022 by Tello Estevez MD at [facility] Posterior : Spine Lumbar JOANN SPINE [id number] / / Screw Set [place] Stry-K2m [id number] 7771 - [id number] Implanted:Qty : 4 on 09/07/2022 by Tello Estevez MD at [facility] Posterior : Spine Lumbar JOANN SPINE [id number] 1 / / Junior Contr Blt Hex 5.5x40mm Stry-K2m [id number]-[id number] 8134 - [id number] Implanted:Qty : 2 on 09/07/2022 by Tello Estevez MD at [facility] Posterior : Spine Lumbar JOANN SPINE 1001-[id number] 0 / / Explanted Type Area Scrubber Operator Device Identifier Shelf Expiration Date Model / Serial / Lot Pin [place] [id number] [id number] 30thrd Stry-Howm [id number] - [id number] Explanted:Qty: 2 on 09/07/2022 by Tello Estevez MD at [facility] Left: Iliac [facility] [id number] / / Advance Directives For more information, please contact: [phone] Latest Code Status on File Code Status Date Activated Date Inactivated Comments Full Code 09/07/2022 12:21 PM 09/08/2022 8:48 PM This code status was ascertained in the following way: discussion with patient . Care Teams Binder Lockstitch Relationship Specialty Start Date End Date Maria Luisa Howell MD PCP - General Internal Medicine 07/04/22
== END 2024-05-23 12:53 | disposition home or self-care (01) ==
PROVIDERS: PCP Internal Medicine; Visit Provider Physician Assistant
DX: Z96.641 Presence of right artificial hip joint (principal)
CPT/HCPCS: 99024

== ENCOUNTER → 2024-05-23 12:24 | Outpatient (BNV) | payer OTHER, SELFPAY | PROVIDERS: Visit Provider Radiology Diagnostic Radiology | DX: M25.551 Pain in right hip (principal) | CPT/HCPCS: 73502 ==

== ENCOUNTER → 2024-08-27 08:38 | Outpatient (BNV) | payer OTHER, SELFPAY | PROVIDERS: Visit Provider Radiology Diagnostic Radiology | DX: M25.551 Pain in right hip (principal); Z96.641 Presence of right artificial hip joint | CPT/HCPCS: 72170 ==

== ENCOUNTER 2024-08-27 08:48 | Outpatient (REF) | payer OTHER, SELFPAY ==
--- NOTE | ~2024-08-27 | XR_ITS ---
EXAMINATION: XR PELVIS 1-2 VIEWS HISTORY: M25.559 - Pain in unspecified hip COMPARISON: Comparison is made with the prior examination dated 04/11/2024. FINDINGS: Two AP views of the pelvis is submitted. The patient is status post right total hip arthroplasty. The orthopedic elements are in anatomic alignment. There is no radiographic evidence of loosening. There is no fracture or dislocation. The left hip joint space is preserved. The patient is status post posterior fusion of L3 and L4. There are vascular calcifications. XR/XR pelvis 1-2V IMPRESSION: Status post right total hip arthroplasty. Electronically signed by: Chris Reyes MD 08/27/2024 09:39 AM EDT
== END 2024-08-27 08:49 | disposition home or self-care (01) ==
LOC: HO.HOSX 08:48
PROVIDERS: Visit Provider Physician Assistant
DX: M25.559 Pain in unspecified hip (principal)
CPT/HCPCS: 72170

== ENCOUNTER 2024-08-27 09:11 | Outpatient (AMB) | payer OTHER, SELFPAY ==
[2024-08-27 09:22] VITALS: BMI 22.2
--- NOTE | 2024-08-27 09:22 | A.OFFVIS_ITS ---
Vital Signs 08/27/24 09:22 Height 5 ft 8 in Weight 146 lb BMI 22.2 Intake Visit Reasons: OV - right MANGO 03/05/24 NE Allergies No Known Allergies Allergy (Verified 08/27/24 09:26) PFSH Medical History HTN (hypertension) Avascular necrosis Alcohol dependence Chronic GERD Cluster headache High cholesterol Surgical History Hx of cataract surgery History of back surgery History of colonoscopy History of neck surgery Family History Mother Cancer Father Heart attack Social History Household Members: Spouse Housing: House Are you a primary healthcare architect to a significant other at home: No Do you presently have visiting nurse or other home services: No 75 years or older and lives alone: No Alcohol intake: current Alcohol intake frequency: a few times a month Alcohol type: beer Patient Tobacco Use Status: Former Tobacco user Tobacco use type: Cigarette Cigarettes Per Day: 27 Years Smoked: 38 e-Cigarette/Vaping Use: Never Used Substance Use Type: Marijuana service: No Current occupational status: employed 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
--- NOTE | 2024-08-27 09:22 | A.OFFVIS_ITS ---
Vital Signs 08/27/24 09:22 Height 5 ft 8 in Weight 146 lb BMI 22.2 Intake Visit Reasons: OV - right MANGO 03/05/24 NE Intake Note: Chris is a 63 year old male who presents today for a post operative appointment s/p right MANGO 03/05/24 NE. Patient reports that he fell on the right hip over the weekend in his yard. Patient reports bruising around the incision sight, warm to the touch. Patient states that the right hip was feeling better before the fall. States that he is not taking anything to help with the pain due to not having pain. Allergies No Known Allergies Allergy (Verified 08/27/24 09:26) HPI HPI OV - right MANGO 03/05/24 NE: Details: Mr. Knott is a 63 year old male who presents today for a post operative appointment s/p right MANGO 03/05/24 NE. Overall the patient reports that he has been doing very well. He does report some soreness occasionally but denies pain. Of note, the patient reports that he fell on the right hip over the weekend in his yard. She reports that the pain after the fall has subsided significant. He is not using any NSAIDs or Tylenol for pain as he is not experiencing any pain at this time. [facility], [facility] Medical History HTN (hypertension) Avascular necrosis Alcohol dependence Chronic GERD Cluster headache High cholesterol Surgical History Hx of cataract surgery History of back surgery History of colonoscopy History of neck surgery Family History Mother Cancer Father Heart attack Social History Household Members: Spouse Housing: House Are you a primary nursing care attendant to a significant other at home: No Do you presently have visiting nurse or other home services: No 75 years or older and lives alone: No Alcohol intake: current Alcohol intake frequency: a few times a month Alcohol type: beer Patient Tobacco Use Status: Former Tobacco user Tobacco use type: Cigarette Cigarettes Per Day: 27 Years Smoked: 38 e-Cigarette/Vaping Use: Never Used Substance Use Type: Marijuana service: No Current occupational status: employed 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 No tenderness to palpation over the greater trochanteric bursa. 5/5 strength with resisted hip flexion, knee extension, abduction, and abduction. Able to perform straight leg raise. NVI. Assessment & Plan Assessment & Plan (1) Status post total hip replacement, right: Code(s): Z96.641 - Presence of right artificial hip joint Category: Surgical Plan Chris is a 63 year old male who presents today for a post operative appointment s/p right MANGO 03/05/24 NE. Patient reports that he fell on the right hip over the weekend in his yard. Patient reports bruising around the incision sight, warm to the touch. Patient states that the right hip was feeling better before the fall. States that he is not taking anything to help with the pain due to not having pain. While in the office today, the patient is not experiencing any pain with range of motion in his able to demonstrate a straight leg raise. He is doing very well. He did have a fall recently but his pain is subsiding. X-rays were obtained in the office today and are negative for any periprosthetic, acute f racture or dislocation. He will follow up in 6 months at the 1 year postoperative tim, sooner if needed. X-rays of the pelvis which were obtained while in the office today and were reviewed by me, Chaparrita Gordillo PA-C, revealed no acute fracture, periprosthetic fracture, loosening or dislocation. Orders: Orders XR pelvis 1-2V Today M25.559 - Pain in unspecified hip Coding Level of Care Code Est Pt Level 3 (90474) Diagnoses Status post total hip replacement, right Z96.641
== END 2024-08-27 09:32 | disposition home or self-care (01) ==
LOC: HO.HOS 09:12
PROVIDERS: PCP Internal Medicine; Visit Provider Physician Assistant
DX: Z47.1 Aftercare following joint replacement surgery (principal); Z96.641 Presence of right artificial hip joint
CPT/HCPCS: 99213

== ENCOUNTER 2024-10-14 15:50 | Outpatient (AMB) | payer OTHER, SELFPAY ==
--- NOTE | 2024-10-14 15:56 | A.OFFPC_ITS ---
Vital Signs 10/14/24 15:58 10/14/24 16:01 Height 5 ft 8 in Weight 153 lb 4 oz BMI 23.3 BP 144/86 H 156/88 H Blood Pressure Location Lt brachial Lt brachial Position Sitting Sitting Respiration 14 Pulse 81 Pulse Source Pulse Oximeter Temp 98.5 F Temp Source Oral Pulse Oximetry (%) 96 Oxygen Delivery Method Room Air Intake Visit Reasons: 1 yr annual Intake Note: Physical Truck Dispatcher Required: No Allergies No Known Allergies Allergy (Verified 08/27/24 09:26) Tobacco use date assessed: 10/14/24 Dental Screening Dental Screen Date: 10/14/24 Did you have a dental visit in the last 12 months?: No Did you have a dental problem in the last 6 months where you did not have access to dental care?: No Was dental information given to patient?: Patient has dentist HPI HPI Comments History of Present Illness Details The patient is a 63 year old male with a past medical history of hypertension, hyperlipidemia, headaches, lumbar ddd, cervical myelopathy, right hip OA s/p RTHR presenting for annual exam MSK -s/p right THR-fell on it in August-had fo llow up with ortho. imaging reassuring. -History of L3/L4 surgery 2022. Continue s gabapentin. resolved thigh pain and numbness following right hip surgery. Developed cervical myelopathy following surgery. Continues to be most bothered by daily chronic deep right upper leg pain. Pelvic imaging with AVN of right hip and large effusion-s/p surgery CV: On pravastatin, verapamil (BOURGEOIS prophylaxis). BP has been elevated. Previously on 240mg is currently only on 120mg daily. Denies chest pain, dizziness, vision changes. GERD-stable on pepcid 20mg daily Cataract-Dr Li Colonoscopy 2012-had to reschedule colonoscopy when getting hip surgery ROS see HPI PHYSICAL EXAM: GENERAL: Alert and oriented x 3. NAD EYES: EOMI. Anicteric. HENT: Moist mucous membranes. No scleral icterus. No cervical lymphadenopathy. LUNGS: Clear to auscultation bilaterally. CARDIOVASCULAR: Regular rate and rhythm. No murmur. No JVD. ABDOMEN: Soft, non-tender +bs :Normal penis and testes EXTREMITIES: No edema. Non-tender. SKIN: No rashes or lesions. Warm. NEUROLOGIC: No focal neurological deficits. CN II-XII grossly intact PSYCHIATRIC: Cooperative. Appropriate mood and affect [facility] Medical History Avascular necrosis of bone HTN (hypertension) Avascular necrosis Alcohol dependence Chronic GERD Cluster headache High cholesterol Surgical History History of right hip replacement Hx of cataract surgery History of back surgery History of colonoscopy History of neck surgery Family History Mother Cancer Father Heart attack Social History Household Members: Spouse Housing: House Are you a primary manager of care to a significant other at home: No Do you presently have visiting nurse or other home services: No 75 years or older and lives alone: No Alcohol intake: current Alcohol intake frequency: a few times a month Alcohol type: beer Patient Tobacco Use Status: Former Tobacco user Tobacco use type: Cigarette Cigarettes Per Day: 27 Years Smoked: 38 e-Cigarette/Vaping Use: Never Used Substance Use Type: Marijuana service: No Current occupational status: employed 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 1. Little interest or pleasure in doing things: not at all 2. Feeling down, depressed, or hopeless: not at all 3. Trouble falling or staying asleep, or sleeping too much: several days 4. Feeling tired or having little energy: not at all 5. Poor appetite or overeating: not at all 6. Feeling bad about yourself - or that you are a failure or have let yourself or your family down: not at all 7. Trouble concentrating on things, such as reading the newspaper or watching television: not at all 8. Moving or speaking so slowly that other people could have noticed. Or the opposite - being so fidgety or restless that you have been moving around a lot more than usual: not at all 9. Thoughts that you would be better off or of hurting yourself in some way : not at all Total score: 1 Depression Screening Interpretation: Negative Depression Screening Done: Yes 98386 - PHQ-9 Billing: Yes Source: Developed by Drs. Chris Valentino, Velia León, Aaron Echols and colleagues, with an educational carrie from [employer]. Thrive Questionnaire Date Thrive assessed: 10/07/24 I am a: Patient What is your living situation today?: I have a steady place to live Within the past 12 months, did the food you bought not last and you didn't have the money to get more?: Never true Within the past 12 months, did you worry whether your food would run out before you got money to buy more?: Never true Do you have trouble paying for medicines?: No Do you have trouble getting transportation to medical appointments?: No Do you have trouble paying your heating and electricity bill?: No Do you have trouble taking care of your child, family member or friend?: No Do you have trouble with day-to-day activities such as bathing, preparing meals, shopping, managing finances, etc.?: No Are you currently unemployed and looking for a job?: No Are you interested in more education?: No Please select the resources that you would like help with: None Currently or been in a relationship where the following occur: No concerns reported THRIVE Score: 0 AUDIT C Alcohol Use Questionnaire (AUDIT-C) 1. How often do you have a drink containing alcohol?: 4 or more times a week 2. How many drinks containing alcohol do you have on a typical day when you are drinking?: 3 or 4 3. How often do you have six or more drinks on one occasion?: Monthly Total Score: 7 TINA-7 AMB Questionnaire TINA-7 Date TINA - 7 assessed: 01/08/24 Feeling nervous, anxious, or on edge: 0 = Not at all Not being able to stop or control worryin = Not at all Worrying too much about different things: 0 = Not at all Trouble relaxin = Not at all Being so restless that it is hard to sit still: 0 = Not at all Becoming easily annoyed or irritable: 0 = Not at all Feeling afraid as if something awful might happen: 0 = Not at all Total TINA-7 score (0-4 normal; 5-9 mild; 10-14 moderate; 15-21 severe): 0 Source: Developed by Drs. Chris Valentino, Velia León, Aaron Echols and colleagues, with an educational carrie from [employer]. Physical exam (Primary Care) Vital Signs: Last Vital Signs Temp 98.5 F 10/14/24 15:58 Pulse 81 10/14/24 15:58 Resp 14 10/14/24 15:58 BP 156/88 H 10/14/24 16:01 Pulse Ox 96 10/14/24 15:58 Oxygen Delivery Method Room Air 10/14/24 15:58 BMI result Body Mass Index 23.3 Tobacco/Smoking Status: Tobacco use Status Tobacco use date assessed 10/14/24 10/14/24 16:02 Patient Tobacco Use Status Former Tobacco user 10/14/24 16:02 Tobacco use type Cigarette 10/14/24 16:02 e-Cigarette/Vaping Use Never Used 10/14/24 16:02 PHQ-9: PHQ-9 Score PHQ-9: Total score 1 10/14/24 16:19 Depression Screening Interpretation: Negative Thrive Assessment: Date of Thrive Assessment Date Thrive assessed 10/07/24 10/14/24 16:02 Currently or been in a relationship where the following occur: No concerns reported Coding Level of Care Code Est Pt Prev Care 40-64y(06712) Diagnoses Physical exam Z00.00 Primary hypertension I10 Hypertension type: primary hypertension Mixed hyperlipidemia E78.2 Hyperlipidemia type: mixed hyperlipidemia Elevated glucose R73.09 Primary osteoarthritis of right hip M16.11 Osteoarthritis type: primary Additional Codes PHQ-9 - 30865 - PHQ-9 Billing: Yes ([id number]) Assessment & Plan Assessment & Plan (1) Physical exam: Code(s): Z00.00 - Encounter for general adult medical examination without abnormal findings (2) HTN (hypertension): Comment: white coat HTN-on verapmil for cluster headache diagnosis Code(s): I10 - Essential (primary) hypertension Category: Medical Qualifiers: Hypertension type: primary hypertension Qualified Code(s): I10 - Essential (primary) hypertension (3) Hyperlipidemia: Code(s): E78.5 - Hyperlipidemia, unspecified Category: Medical Qualifiers: Hyperlipidemia type: mixed hyperlipidemia Qualified Code(s): E78.2 - Mixed hyperlipidemia (4) Elevated glucose: Code(s): R73.09 - Other abnormal glucose Category: Medical (5) Osteoarthritis of right hip: Code(s): M16.11 - Unilateral primary osteoarthritis, right hip Category: Medical Qualifiers: Osteoarthritis type: primary Qualified Code(s): M16.11 - Unilateral primary osteoarthritis, right hip Plan CPE Interval history reviewed CV: Bp is high. Increase verapamil to prior dose of 240 mg daily. Monitor salt intake MSK: stable Needs colonoscopy. reordered Orders: Orders Complete Blood Count Auto Diff Today E78.2 - Mixed hyperlipidemia, R73.09 - Other abnormal glucose, Z12.5 - Encounter for screening for malignant neoplasm of prostate Comprehensive Met. Panel Today E78.2 - Mixed hyperlipidemia, R73.09 - Other abnormal glucose, Z12.5 - Encounter for screening for malignant neoplasm of prostate Hemoglobin A1c Today E78.2 - Mixed hyperlipidemia, R73.09 - Other abnormal glucose, Z12.5 - Encounter for screening for malignant neoplasm of prostate Prostate Specific Antigen Today E78.2 - Mixed hyperlipidemia, R73.09 - Other abnormal glucose, Z12.5 - Encounter for screening for malignant neoplasm of prostate Lipid Panel Today E78.2 - Mixed hyperlipidemia, R73.09 - Other abnormal glucose, Z12.5 - Encounter for screening for malignant neoplasm of prostate Medications: New pravastatin 40 mg PO DAILY 90 tabs 3RF verapamil ER 240 mg PO DAILY 90 caps 3RF
[2024-10-14 15:58] VITALS: BP 144/86; PULSE 81; RESP 14; TEMP 36.9; O2SAT 96; BMI 23.3
[2024-10-14 16:01] VITALS: BP 156/88
--- OUTSIDE RECORDS SUMMARY | 2024-10-14 16:02 | XMS_ITS ---
Author Name [facility] Unknown History of Medication Use Medication Directions Dispensed Refills Start Date End Date Stat us acetaminophen (TYLENOL) 325 MG tablet Take 3 tablets (975 mg total) by mouth every 8 (eight) hours as needed for pain. 09/08/2022 active verapamil (CALAN-SR) 120 MG CR tablet 2 (two) times a day. 07/03/2022 active Problems Problem Status Onset Date Problem Type Date of Resolution Source Lumbar back pain with radiculopathy affecting right lower extremity active 2022-07-12 ProblemAct [facility] Lumbosacral radiculopathy at L3 active 2022-07-27 ProblemAct [facility] Lumbar herniated disc active 2022-07-12 ProblemAct [facility] Degenerative lumbar spinal stenosis active 2022-09-07 ProblemAct [facility] Right thigh pain active 2022-07-12 ProblemAct C [facility] S/P lumbar fusion active EncounterDiagnosisAct [facility] Encounters Encounter Type Encounter Reason Primary Diagnosis Location Date Ambulatory Postlaminectomy syndrome, not elsewhere classified Postlaminectomy syndrome, not elsewhere classified [facility] 12/15/2022 Ambulatory Postlaminectomy syndrome, not elsewhere classified Postlaminectomy syndrome, not elsewhere classified [facility] 12/15/2022 Inpatient Pain, unspecified [facility] 09/07/2022 Care Team Organization Name Specialty Phone Email Start Date End Da te [facility] 04/09/2023 [facility] 202207/12/2024 [facility] 06/05/2024 [facility]
--- OUTSIDE RECORDS SUMMARY | 2024-10-14 16:02 | XMS_ITS | Clinical Summary ---
Author Organization [facility] Address [address] [place] [address] Care Team Providers Care Baggageman Name Role Phone Maria Luisa Howell MD Primary Care Provider [phone] Allergies No known active allergies Medications Medication [...] 99 01/13/2023 3:02 PM EDT Temperature 36.2 C (97.2 F) 01/13/2023 3:02 PM EDT Respiratory Rate 22 12/15/2022 2:28 PM EDT [...] 07/29/2020, Additional history exists Influenza Vaccine (#1) 2024 RSV Adult > 60+ Yrs or (1 [...] this topic Medical Devices Implanted Type Area Block Feeder Device Identifier Shelf Expiration Date Model / Serial / Lot Surgiflo Hemostatic Matrix Jnj-Ethi [id number] - [id number] Implanted:Qty : 1 on 09/07/2022 by Tello Estevez [place] [facility] Hemostatic Agent Posterior : Spine Lumbar [employer] 02/17/2024 2991 / / [id number] Cacellous 1-8mm Implanted:Qty : 1 on 09/07/2022 by Tello Estevez [place] [facility] Posterior : Spine Lumbar CHARI SPINE 12/02/2026 [id number] / [id number] / Vesuvius 100 Dbm Bone Putty 10 Stry-K2m [id number] - [id number] Implanted:Qty : 1 on 09/07/2022 by Tello Estevez MD [place] [facility] Posterior : Spine Lumbar CHARI SPINE 06/17/2025 [id number] / [id number] / Shell Short Flarehawk 25mm Fh9 IntSycamore Medical [id number]- [id number] - [id number] Implanted:Qty : 1 on 09/07/2022 by Tello Estevez MD at [facility] Posterior : Spine Lumbar [employer] [id number] / / Cage Spinal Flarehawk 0 D L25 [facility] [id number] - [id number] Implanted:Qty : 1 on 09/07/2022 by Tello Estevez MD at [facility] Posterior : Spine Lumbar [employer] [id number] / / Screw Wendy Polyaxial Extended Tab 6.5x45mm Stry-K2m [id number] - [id number] Implanted:Qty : 4 on 09/07/2022 by Tello Estevez MD at [facility] Posterior : Spine Lumbar CHARI SPINE [id number] / / Screw Set [place] Stry-K2m [id number] - [id number] Implanted:Qty : 4 on 09/07/2022 by Tello Estevez MD [place] [facility] Posterior : Spine Lumbar CHARI SPINE [id number] / / Junior Contr Blt Hex 5.5x40mm Stry-K2m [id number] [id number] - [id number] Implanted:Qty : 2 on 09/07/2022 by Tello Estevez MD at [facility] Posterior : Spine Lumbar CHARI SPINE [id number] / / Explanted Type Area Block Feeder Device Identifier Shelf Expiration Date Model / Serial / Lot Pin [place] [id number] 30thrd Stry-Howm [id number] - [id number] Explanted:Qty: 2 on 09/07/2022 by Tello Estevez MD [place] [facility] Left: Iliac Crest [employer] [id number] / / Advance Directives For more information, please contact: [phone] Latest Code Status on File Code Status Date Activated Date Inactivated Comments Full Code 09/07/2022 12:21 PM 09/08/2022 8:48 PM This code status was ascertained in the following way: discussion with patient . Care Teams Baggageman Relationship Specialty Start Date End Date Maria Luisa Howell MD PCP - General Internal Medicine 07/04/22
--- OUTSIDE RECORDS SUMMARY | 2024-10-14 16:02 | XMS_ITS | Clinical Summary ---
Author Organization [facility] ity Address [address] [place] [address] Care Team Providers Care Business Banking Manager Name Role Phone Maria Luisa Howell MD Primary Care Provider [phone] Surgical History Surgery Date Site/Laterality Comments COLONOSCOPY PROCEDURE:COLONOSCOPY LUMBAR FUSION 09/07/2022 Posterior PROCEDURE:LUMBAR FUSION;COMMENT:Procedure: RIGHT L3/4 FUSION SPINE LUMBAR - TLIF 1 LEVEL; Surgeon: Tello Estevez MD; Location: [facility] [place] ([facility]); Service: Spine; Laterality: Posterior; AUTOGRAFT/SPINE SURGERY 09/07/2022 N/A PROCEDURE:AUTOGRAFT/SPINE SURGERY;COMMENT:Procedure: AUTOGRAFT BONE SPINE; Surgeon: Tello Estevez MD; Location: [facility]); Service: Spine; Laterality: N/A; SPINE SURGERY 09/07/2022 N/A PROCEDURE:SPINE SURGERY;COMMENT:Procedure: LAMINECTOMY, FACETECTOMY, OR FORAMINOTOMY LUMBAR DURING POSTERIOR INTERBODY ARTHRODESIS SINGLE VERTEBRAL SEGMENT; Surgeon: Tello Estevez MD; Location: [facility]); Service: Spine; Laterality: N/A; LUMBAR EPIDURAL INJECTION 12/15/2022 Right PROCEDURE:LUMBAR EPIDURAL INJECTION;COMMENT:Procedure: INJECTION ANESTHETIC AGENT LUMBAR Transforaminal; Surgeon: uSsannah Tanner MD; Location: [facility]; Service: Rehab Medicine; Laterality: Right; Medical [...] - Risk 3-dose series) 2021 RSV Immunization Adult Patie nts (1 - Risk 60-74 years 1-dose series) 2021 Cholesterol Screening (Lipid Panel) 02/26/2022 Colorectal Cancer Screening: Colonoscopy 02/26/2022 HIV Screening 02/26/2022 Hepatitis C Screening 02/26/2022 Lung Cancer Screening (Low D ose CT) 02/26/2022 Social Influencers of Health Screening 02/26/2022 Hypertension/CHF/CAD Annual BMP Blood Test 03/03/2022 DTaP,Tdap,and Td Vaccines (2 - Td or Tdap) 02/27/2023 02/27/2013 COVID-19 Vaccine (1 - 2023-2 5 season) 2023 Depression Screening 03/20/2024 Influenza Vaccine (#1) 2024 HIB Vaccines Aged Out No longer eligi [...] age to complete this topic Meningococcal B Vaccine Aged Out No l onger eligible based on patient's age to complete this topic RSV Immunization Patients Un radha 20 months Aged Out No longer eligible b ased on patient's age to complete this topic Varicella Vaccines Aged Out No longer eligible based on patient's age to complete this topic Medical Devices Implanted Type Area Press Set Up Person Device Identifier Shelf Expiration Date Model / Serial / Lot Surgiflo Hemostatic Matrix [facility]-Ethi [id number] Implanted:Qty: 1 on 09/07/2022 by Tello Estevez MD Implants N/A: Spine Lumbar [facility] ETH[employer] INC 02/17/2024 2991 / / [id number] Cacellous 1-8mm Implanted:Qty: 1 on 09/07/2022 by Tello Estevez MD N/A: Spine Lumbar JOANN SPINE 12/02/2026 [id number] / [id number] / Vesuvius 100 Dbm Bone Putty 10 Stry-K2m [id number]-[id number] 66083 - [id number] Implanted:Qty: 1 on 09/07/2022 by Tello Estevez MD N/A: Spine Lumbar JOANN SPINE 06/17/2025 [id number] DP / [id number] / Shell Short Flarehawk 25mm Fh9 Intg-Manu [id number] Implanted:Qty: 1 on 09/07/2022 by Tello Estevez MD N/A: Spine Lumbar [employer] [id number] / / Cage Spinal Flarehawk 0 D L25 Int-[facility] [id number]-[id number] 5630 Implanted:Qty: 1 on 09/07/2022 by Tello Estevez MD N/A: Spine Lumbar [employer] [id number] / / Screw Wendy Polyaxial Extended Tab 6.5x45mm Stry-K2m [id number] Implanted:Qty: 4 on 09/07/2022 by Tello Estevez MD N/A: Spine Lumbar JOANN SPINE [id number] / / Screw Set [place] Stry-K2m [id number] 771 Implanted:Qty: 4 on 09/07/2022 by Tello Estevez MD N/A: Spine Lumbar JOANN SPINE [id number] / / Junior Contr Blt Hex 5.5x40mm Stry-K2m [id number] Implanted:Qty: 2 on 09/07/2022 by Tello Estevez MD N/A: Spine Lumbar JO[employer] SPINE [id number] / / Care Teams Business Banking Manager Relationship Specialty Start Date End Date Maria Luisa Howell MD PCP - General 07/04/22
== END 2024-10-14 16:44 | disposition home or self-care (01) ==
LOC: HO.HMCFM 15:51
PROVIDERS: PCP Internal Medicine; Visit Provider Internal Medicine
DX: Z00.00 Encounter for general adult medical examination without abnormal findings (principal); I10 Essential (primary) hypertension; E78.2 Mixed hyperlipidemia; R73.09 Other abnormal glucose; M16.11 Unilateral primary osteoarthritis, right hip

== ENCOUNTER → 2024-10-14 15:50 | Outpatient (BNVA) | payer OTHER, SELFPAY | PROVIDERS: PCP Internal Medicine; Visit Provider Internal Medicine | DX: Z00.00 Encounter for general adult medical examination without abnormal findings (principal); Z13.31 Encounter for screening for depression; I10 Essential (primary) hypertension; E78.2 Mixed hyperlipidemia; R73.09 Other abnormal glucose; M16.11 Unilateral primary osteoarthritis, right hip | CPT/HCPCS: 96127 ==

== ENCOUNTER 2024-10-22 07:32 | Outpatient (REF) | payer OTHER, SELFPAY ==
--- OUTSIDE RECORDS SUMMARY | 2024-10-22 07:34 | XMS_ITS | Clinical Summary ---
Author Organization [facility] ity Address [address] [place] [address] Care Team Providers Care Child Care Coordinator Name Role Phone Maria Luisa Howell MD Primary Care Provider [phone] Surgical History Surgery Date Site/Laterality Comments COLONOSCOPY PROCEDURE:COLONOSCOPY LUMBAR FUSION 09/07/2022 Posterior PROCEDURE:LUMBAR FUSION;COMMENT:Procedure: RIGHT L3/4 FUSION SPINE LUMBAR - TLIF 1 LEVEL; Surgeon: Tello Estevez MD; Location: [facility] [place] ([facility]); Service: Spine; Laterality: Posterior; AUTOGRAFT/SPINE SURGERY 09/07/2022 N/A PROCEDURE:AUTOGRAFT/SPINE SURGERY;COMMENT:Procedure: AUTOGRAFT BONE SPINE; Surgeon: Tello Estevez MD; Location: [facility]); Service: Spine; Laterality: N/A; SPINE SURGERY 09/07/2022 N/A PROCEDURE:SPINE SURGERY;COMMENT:Procedure: LAMINECTOMY, FACETECTOMY, OR FORAMINOTOMY LUMBAR DURING POSTERIOR INTERBODY ARTHRODESIS SINGLE VERTEBRAL SEGMENT; Surgeon: Tello Estevez MD; Location: [facility]); Service: Spine; Laterality: N/A; LUMBAR EPIDURAL INJECTION 12/15/2022 Right PROCEDURE:LUMBAR EPIDURAL INJECTION;COMMENT:Procedure: INJECTION ANESTHETIC AGENT LUMBAR Transforaminal; Surgeon: Susannah Tanner MD; Location: [facility]; Service: Rehab Medicine; Laterality: Right; Medical [...] this topic Medical Devices Implanted Type Area Tier Over Device Identifier Shelf Expiration Date Model / Serial / Lot Surgiflo Hemostatic Matrix [facility]-Ethi [id number] Implanted:Qty: 1 on 09/07/2022 by Tello Estevez MD Implants N/A: Spine Lumbar [facility] ETH[employer] INC 02/17/2024 2991 / / [id number] Cacellous 1-8mm Implanted:Qty: 1 on 09/07/2022 by Tello Estevez MD N/A: Spine Lumbar JOANN SPINE 12/02/2026 [id number] / [id number] / Vesuvius 100 Dbm Bone Putty 10 Stry-K2m 1569-[id number] 55996 - [id number] Implanted:Qty: 1 on 09/07/2022 by Tello Estevez MD N/A: Spine Lumbar JOANN SPINE 06/17/2025 [id number] DP / [id number] / Shell Short Flarehawk 25mm Fh9 Intg-Manu [id number] Implanted:Qty: 1 on 09/07/2022 by Tello Estevez MD N/A: Spine Lumbar [employer] [id number] / / Cage Spinal Flarehawk 0 D L25 [facility] [id number]-[id number] 5630 Implanted:Qty: 1 on 09/07/2022 by Tello Estevez MD N/A: Spine Lumbar [employer] [id number] / / Screw Wendy Polyaxial Extended Tab 6.5x45mm Stry-K2m [id number] [id number] Implanted:Qty: 4 on 09/07/2022 by Tello Estevez MD N/A: Spine Lumbar JOANN SPINE [id number] / / Screw Set [place] Stry-K2m [id number] 771 Implanted:Qty: 4 on 09/07/2022 by Tello Estevez MD N/A: Spine Lumbar JOANN SPINE [id number] / / Junior Contr Blt Hex 5.5x40mm Stry-K2m [id number] Implanted:Qty: 2 on 09/07/2022 by Tello Estevez MD N/A: Spine Lumbar JO[employer] SPINE [id number] / / Care Teams Child Care Coordinator Relationship Specialty Start Date End Date Maria Luisa Howell MD PCP - General 07/04/22
--- OUTSIDE RECORDS SUMMARY | 2024-10-22 07:34 | XMS_ITS | Clinical Summary ---
Author Organization [facility] Address [address] [place] [address] Care Team Providers Care Steam Locomotive Firer/Fireman Name Role Phone Maria Luisa Howell MD Primary Care Provider [phone] Allergies No known active allergies Medications Medication [...] this topic Medical Devices Implanted Type Area Border Measurer Device Identifier Shelf Expiration Date Model / Serial / Lot Surgiflo Hemostatic Matrix [employer]i [id number] - [id number] Implanted:Qty : 1 on 09/07/2022 by Tello Estevez MD at [facility] and [facility] Hemostatic Agent Posterior : Spine Lumbar [employer] 02/17/2024 2991 / / [id number] Cacellous 1-8mm Implanted:Qty : 1 on 09/07/2022 by Tello Estevez MD at [facility] and Med Posterior : Spine Lumbar CHARI SPINE 12/02/2026 [id number] / [id number] / Vesuvius 100 Dbm Bone Putty 10 Stry-K2m [id number]- [id number] - [id number] Implanted:Qty : 1 on 09/07/2022 by Tello Estevez MD at [facility] and Med Posterior : Spine Lumbar CHARI SPINE 06/17/2025 [id number] 0DP / [id number] / Shell Short Flarehawk 25mm Fh9 IntT[facility] HospitalMhrkmn3288no- [id number] - [id number] Implanted:Qty : 1 on 09/07/2022 by Tello Estevez MD at [facility] and Med Posterior : Spine Lumbar [employer] [id number] / / Cage Spinal Flarehawk 0 D L25 [facility] HospitalChlel86822p-6 25275 - [id number] Implanted:Qty : 1 on 09/07/2022 by Tello Estevez MD at [facility] and [facility] Posterior : Spine Lumbar [employer] [id number] / / Screw Wendy Polyaxial Extended Tab 6.5x45mm Stry-K2m H7979-36497-1 93254 - [id number] Implanted:Qty : 4 on 09/07/2022 by Tello Estevez MD at [facility] and Med Posterior : Spine Lumbar CHARI SPINE [id number] / / Screw Set [place] Stry-K2m 3758-00524-24 7771 - [id number] Implanted:Qty : 4 on 09/07/2022 by Tello Estevez MD at [facility] and Med Posterior : Spine Lumbar CHARI SPINE [id number] 1 / / Junior Contr Blt Hex 5.5x40mm Stry-K2m [id number]-[id number] 8134 - [id number] Implanted:Qty : 2 on 09/07/2022 by Tello Estevez MD at [facility] and [facility] Posterior : Spine Lumbar CHARI SPINE 1001-[id number] 0 / / Explanted Type Area Border Measurer Device Identifier Shelf Expiration Date Model / Serial / Lot Pin [place] [id number] [id number] 30thrd Stry-Howm [id number] - [id number] Explanted:Qty: 2 on 09/07/2022 by Tello Estevez MD at [facility] and [facility] Left: Iliac Crest [facility] 5023-3-120 / / Advance Directives For more information, please contact: [phone] Latest Code Status on File Code Status Date Activated Date Inactivated Comments Full Code 09/07/2022 12:21 PM 09/08/2022 8:48 PM This code status was ascertained in the following way: discussion with patient . Care Teams Steam Locomotive Firer/Fireman Relationship Specialty Start Date End Date Maria Luisa Howell MD PCP - General Internal Medicine 07/04/22
[2024-10-22 11:14] LABS: MANUAL DIFF FLAG NO
[2024-10-22 11:32] LABS: Hematocrit 45.1 % (42.0-52.0); Hemoglobin 15.3 g/dl (14.0-18.0); Imm Gran Abs Auto 0.02 X10*3/uL (0.00-0.03); Imm Gran Pct Auto 0.3 % (0.0-0.4); Lymphocytes Absolute Auto 1.5 X10*3/uL (1.2-4.9); Mean Corpuscular HGB Conc 33.9 g/dl (31.0-36.0); Mean Corpuscular Hemoglobin 33.0 pg (27.0-33.0); Mean Corpuscular Volume 97.4 fL (80.0-98.0); NRBC Abs Auto 0.000 X10*3/uL (0.0-0.012); NRBC Pct Auto 0.0 /100WBC (0.0-0.2); Platelet Count 196 X10*3/uL (160-400); Red Blood Count 4.63 X10*6/uL (4.60-5.80); White Blood Count 7.0 X10*3/uL (4.8-10.8)
[2024-10-22 11:44] LABS: Hemoglobin A1C 146.7115 umol/L; Total Hemoglobin (HGBA1C) 4094.1405 umol/L
[2024-10-22 12:00] LABS: Prostate Specific Antigen 2.55 ng/mL (<0.05-4.0)
[2024-10-22 12:13] LABS: Alanine Aminotransferase 78 U/L (0-40); Albumin Level 4.4 g/dL (3.5-5.0); Alkaline Phosphatase 85 U/L (39-117); Anion Gap 17 (12-20); Aspartate Amino Transferase 79 U/L (5-37); Blood Urea Nitrogen 12 mg/dL (9-16); Calcium 9.2 mg/dL (8.4-10.2); Carbon Dioxide 23 mmol/L (22-29); Chloride 102 mmol/L (96-108); Cholesterol 333 mg/dL (<200); Estimated Glomerular Filt Rate > 60; HDL Cholesterol 39 mg/dL (>40); Potassium 4.1 mmol/L (3.3-5.1); Sodium 138 mmol/L (135-145); Total Protein 7.8 g/dL (6.5-8.0); Triglycerides 1339 mg/dL (<150)
== END 2024-10-22 07:33 | disposition home or self-care (01) ==
LOC: HO.WFDLDS 07:32
PROVIDERS: Visit Provider Internal Medicine
DX: Z12.5 Encounter for screening for malignant neoplasm of prostate (principal); E78.2 Mixed hyperlipidemia; R73.09 Other abnormal glucose
CPT/HCPCS: 36415; 80053; 80061; 83036; 84153; 85025

== ENCOUNTER 2025-02-25 08:18 | Outpatient (AMB) | payer OTHER, SELFPAY ==
--- NOTE | 2025-02-25 08:30 | A.OFFVIS_ITS ---
Vital Signs 02/25/25 08:34 Height 5 ft 8 in Weight 153 lb BMI 23.3 Intake Visit Reasons: OV - right MANGO 03/05/24 NE-w/xrays Intake Note: Chris is a 64 year old male who presents today for a one year follow up from his right total hip arthroplasty done on 03/05/[address] Samaniego. Patient reports he is doing better. He mentions some soreness but it is getting better. Allergies No Known Allergies Allergy (Verified 02/25/25 08:34) HPI Comments Details: History of Present Illness The patient is a 64-year-old male presenting for his annual follow-up status post right total hip arthroplasty, which was performed on March 05, [address] Samaniego. He reports occasional lateral hip discomfort, which varies with his activity level. Overall, he is doing very well and reports his pain has significantly improved since the surgery, allowing him to be more active. [facility] Medical History Avascular necrosis of bone HTN (hypertension) Avascular necrosis Alcohol dependence Chronic GERD Cluster headache High cholesterol Surgical History History of right hip replacement Hx of cataract surgery History of back surgery History of colonoscopy History of neck surgery Family History Mother Cancer Father Heart attack Social History Household Members: Spouse Housing: House Are you a primary director of career resources to a significant other at home: No Do you presently have visiting nurse or other home services: No 75 years or older and lives alone: No Alcohol intake: current Alcohol intake frequency: a few times a month Alcohol type: beer Patient Tobacco Use Status: Former Tobacco user Tobacco use type: Cigarette Cigarettes Per Day: 27 Years Smoked: 38 e-Cigarette/Vaping Use: Never Used Substance Use Type: Marijuana service: No Current occupational status: employed 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 - All other systems: The patient denies any other complaints. Const All systems reviewed & are unremarkable except as noted in HPI and below Physical Exam Exam Exam: Right hip: Normal to inspection. No ecchymosis, erythema, or edema. Full hip ROM in all planes. No tenderness to palpation over the greater trochanteric bursa. 5/5 strength with resisted hip flexion, knee extension, abduction, and abduction. Able to perform straight leg raise. NVI. Vital Signs: BMI result Body Mass Index 23.3 Const General: cooperative, healthy appearing and no acute distress Resp Effort & Inspection: normal respiratory effort and able to speak in complete sentences Psych Appearance: grossly normal Mental Status: mental status grossly normal Attitude: cooperative Assessment & Plan Assessment & Plan (1) Status post total hip replacement, right: Code(s): Z96.641 - Presence of right artificial hip joint Category: Medical Plan The patient is doing well overall following his right total hip arthroplasty with only occasional, activity-dependent lateral hip discomfort which I believe is likely related to bursitis. Physical examination showed good range of motion and 5/5 strength in the affected extremity. X-rays obtained in the office showed an intact arthroplasty with satisfactory alignment and no signs of loosening or fracture. The patient is cleared to continue normal activities as tolerated. He was reminded to use dental prophylaxis before any dental procedures. He will follow up in one year for his annual total joint evaluation, or sooner if needed. Discussion Notes I reviewed the X-rays obtained in the office today, which showed an intact right total hip arthroplasty with satisfactory alignment and no evidence of periprosthetic loosening or fracture. I advised the patient that he may continue with his normal activities as tolerated and reminded him of the need for dental prophylaxis prior to any dental procedures. We will have him follow up in one year for his annual evaluation, or sooner if his symptoms change. Patient Instructions - You may continue your normal activities as you can tolerate them. - Remember to take antibiotics before any dental procedures to protect your hip replacement. - Your X-rays look good, showing the hip replacement is in a good position with no problems. - Please schedule a follow-up appointment in one year for your routine check-up. - You should return sooner if you have any new or worsening problems. Orders: Orders XR hip RT min 2V Today M25.559 - Pain in unspecified hip Coding Level of Care Code Est Pt Level 3 (19201) Diagnoses Status post total hip replacement, right Z96.641
[2025-02-25 08:34] VITALS: BMI 23.3
== END 2025-02-25 08:46 | disposition home or self-care (01) ==
LOC: HO.HOS 08:19
PROVIDERS: Visit Provider Physician Assistant
DX: M25.551 Pain in right hip (principal); Z96.641 Presence of right artificial hip joint
CPT/HCPCS: 99213

== ENCOUNTER 2025-02-25 08:24 | Outpatient (REF) | payer OTHER, SELFPAY ==
--- NOTE | ~2025-02-25 | XR_ITS ---
EXAMINATION: XR HIP, RIGHT CLINICAL INFORMATION: M25.559 - Pain in unspecified hip COMPARISON: X-ray 05/23/2024 TECHNIQUE: Two views of the right hip. Pelvis 1 view FINDINGS: Status post right total hip arthroplasty. Appropriate position and alignment of the arthroplasty components. No acute periprosthetic fracture. No radiographic evidence of loosening. Spinal fusion hardware at L3-4. SI joints are symmetric. Left hip joint space is maintained. Vascular calcifications. XR/XR hip RT min 2V IMPRESSION: Status post right total hip arthroplasty. No radiographic findings to suggest hardware loosening. Electronically signed by: Kai Apple MD 02/25/2025 04:24 PM [email or web address]
== END 2025-02-25 08:25 | disposition home or self-care (01) ==
LOC: HO.HOSX 08:24
PROVIDERS: Visit Provider Physician Assistant
DX: M25.551 Pain in right hip (principal); Z96.641 Presence of right artificial hip joint
CPT/HCPCS: 73502